=== PATIENT | female | born 1940 | race Caucasian/White ===

== ENCOUNTER 2016-10-20 13:29 | Inpatient (IN) | payer OTHER, MEDICARE ==
[~2016-10-20] VITALS: Ht 160 cm; Wt 103.0 kg
[~2016-10-20 13:29] MED LIST: ADVAIR DISKUS1 UNIT INH; AMBIEN 10MG10 MG PO; AMOXICILLIN500 MG PO; ASPIRIN EC81 M1 PO; AUGMENTIN 875-1 EACH PO; AUGMENTIN 875875 MG PO; COUMADIN 7.5 M7.5 MG PO; COUMADIN5 M2 PO; DILTIAZEM 24HR300 M1 PO; DILTIAZEM240 M1 PO; LASIX20 MG PO; LEVOTHYROXINE88 MCG PO; LIPITOR10 MG PO; METFORMIN HCL500 M3 PO; MONTELUKAST SOD10 MG; PREDNISONE 20MG20 MG PO; ZYRTEC ALLERGY10 MG PO
--- NOTE | 2016-10-20 13:47 | NUR ---
C/O NUMBNESS TO LEFT HAND (FINGERS) SINCE THIS AM (0600). DENIES CHEST PAIN, DIZZINESS, HEADACHE. SENT BY DR. ALVAREZ FOR EVALUATION. EKG DONE ON ARRIVAL.
--- NOTE | 2016-10-20 15:33 | NUR ---
PT AMB TO ROOM 4, CHANGED INTO GOWN. AWAITING EVAL. Informed waiting has been performed.
--- NOTE | 2016-10-20 15:35 | NUR ---
PANCHO BLACKMAN IN FOR EVAL
--- NOTE | 2016-10-20 15:49 | ED CARDIAC/CP/PALPITATIONS ---
History of Present Illness General Chief Complaint: Chest Pain Stated Complaint: SIB DR ALVAREZ FOR POSSIBLE STROKE Source: patient Exam Limitations: no limitations Vital Signs & Intake/Output Vital Signs & Intake/Output Vital Signs Date Time Temp Pulse Resp B/P Pulse O2 O2 Flow FiO2 Ox Delivery Rate 10/20 1803 98.7 90 20 150/100 98 Room Air 10/20 1615 103 140/70 10/20 1601 98.5 85 18 158/116 97 Room Air 10/20 1600 98 Room Air 10/20 1344 96.8 98 20 136/70 98 Room Air Allergies Uncoded Allergies: ENVIRONMENTAL ALLERGIES (Severe, PT. IS UNSURE ?SOB 10/15/12) Reconcile Medications Aspirin (Ecotrin) 81 MG TABLET.DR 81 MG PO EOD MECHANICAL VALVE (Reported) Atorvastatin Calcium (Lipitor) 10 MG TAB 10 MG PO DAILY HLD (Reported) DILTIAZEM HCL (Diltiazem 24HR Cd) 300 MG CAP.ER.24H 1 TAB PO DAILY HEART HEALTH (Reported) Furosemide (Lasix) 20 MG TABLET 1 TAB PO DAILY PULMONARY EDEMA Levothyroxine Sodium (Levothyroxine) 0.088 MG TAB 88 MG PO DAILY THYROID ( Reported) Metformin Hydrochloride (Metformin ER) [address] 500 MG PO DAILY SUGAR ( Reported) Warfarin Sodium 5 MG TABLET 5 MG PO DAILY MECHANICAL VALVE (Reported) Sunday Triage Note: C/O NUMBNESS TO LEFT HAND (FINGERS) SINCE THIS AM (0600). DENIES CHEST PAIN, DIZZINESS, HEADACHE. SENT BY DR. ALVAREZ FOR EVALUATION. Triage Nurses Notes Reviewed? yes HPI: Patient is a 76-year-old female presents for evaluation of left hand numbness and weakness. Symptoms onset at 6 AM this morning. Patient reports that she dropped two bananas this morning from her left hand. Patient saw her primary care provider presents the emergency department for evaluation to rule out stroke. Patient reports numbness is moderate and localized to her left fingers. Patient takes Coumadin daily for atrial fibrillation and a mechanical heart valve. Patient took 81 mg of aspirin this morning, does not take aspirin daily. Mild pain around patient's left eyebrow which she attributes to allergies, reports she has had this pain previously. Patient denies blurred vision, change in speech, recent trauma. (YEHUDA DELEON,MELI) Past History Travel History Traveled to [place] past 21 day No Medical History Any Pertinent Medical History? see below for history Neurological: NONE EENT: NONE Cardiovascular: AFIB Respiratory: asthma Gastrointestinal: NONE Hepatic: NONE Renal: NONE Musculoskeletal: NONE Psychiatric: NONE Endocrine: diabetes, hypothyroidism Blood Disorders: NONE Cancer(s): NONE PC ANALYST/Reproductive: NONE Surgical History Surgical History: non-contributory Psychosocial History What is your primary language Luxembourgish Tobacco Use: Never used ETOH Use: denies use Family History Hx Contributory? No (MELI WILSON) Review of Systems Review of Systems Constitutional: Denies: chills, fever. EENTM: Denies: blurred vision. Respiratory: Denies: cough, short of breath. Cardiovascular: Denies: chest pain, peripheral edema, syncope. GI: Denies: abdominal pain, nausea, vomiting. Musculoskeletal: Denies: back pain, neck pain. Skin: Denies: rash. Neurological/Psychological: Denies: headache, numbness. Hematologic/Endocrine: Denies: bruising, bleeding. Immunologic/Allergic: Denies: splenectomy. (MELI WILSON) Physical Exam Physical Exam General Appearance: well developed/nourished, alert, awake Head: atraumatic, normal appearance Eyes: Bilateral: normal appearance, PERRL, EOMI. 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 Sensation grossly normal to the remaining bilateral upper and lower extremities. Strength 5 out of 5 in all 4 extremities. Normal heeoj-se-xhusy movements Skin: intact, normal color, warm/dry Lymphatic: no anterior cervical shanell Core Measures ACS in differential dx? No Severe Sepsis Present: No Septic Shock Present: No (MELI WILSON) Progress Differential Diagnosis: CVA, TIA, arrhythmia, aortic dissection, carotid dissection Diagnostic Imaging: Viewed by Me: CT Scan. Discussed w/RAD: CT Scan. Radiology Impression: PATIENT: CHELSEY SALINAS PRESENT AGE: 76 PATIENT ACCOUNT NO: [id number] : 41 LOCATION: [facility] ORDERING PHYSICIAN: MELI DELEON SERVICE DATE: 10/20/16 EXAM TYPE: CAT - CT HEAD WO IV CONTRAST EXAMINATION: CT HEAD WITHOUT CONTRAST CLINICAL INFORMATION: Stroke, left-sided weakness. COMPARISON: None. TECHNIQUE: Contiguous axial imaging was performed from the skull base to vertex without intravenous administration of contrast. DLP: 529 mGy-cm. FINDINGS: There is subtle small focus of decreased attenuation involving the valente-white matter junction right frontal lobe precentral gyrus. No hemorrhage. Mild white matter symmetrical decreased attenuation within the periventricular location most consistent chronic small vessel ischemic changes. There is incidental coarse calcific lesion within the right sylvian cistern likely dystrophic. Relatively pronounced atherosclerosis within the vessels at the base the brain. The ventricles are normal in size. Likely streak artifact accounting for a focus of high density right posterior parietal lobe. The osseous structures and soft tissues are normal. The mastoid air cells and visualized portions of the paranasal sinuses are well aerated. IMPRESSION: Small focus of abnormality right frontal lobe. The appearance is consistent with an ischemic insult. Appearance favors nonacute duration more likely subacute. Correlate with clinical findings and time course. Consider MRI as symptoms warrant for more detailed dating and assessment. DICTATED BY: PATRICIA QUINTANILLA MD DATE/TIME DICTATED:10/20/161616 MANAGER BUSINESS BANKING:KATHLEEN DATE/TIME TRANSCRIBED:10/20/161616 CONFIDENTIAL, DO NOT COPY WITHOUT APPROPRIATE AUTHORIZATION. <Electronically signed in Other Vendor System> SIGNED BY: PATRICIA QUINTANILLA MD 10/20/16 1625 Initial ED EKG: AFIB (rate controlled) Rhythm Strip: atrial fibrillation (YEHUDA DELEON,MELI) Plan of Care: Orders Procedure Date/time Status Heart Healthy Diet 10/21 B Active Patient Data 10/20 1928 Active Vital Signs 10/20 1928 Active Code Status 10/[address] in observation 10/20 191 Active Add-on Test (ER Only) 10/20 1557 Active TROPONIN LEVEL 10/20 1552 Complete Telemetry/Client Support Manager 10/20 1545 Active PROTHROMBIN TIME 10/20 1545 Complete COMPREHENSIVE METABOLIC PANEL 10/20 1545 Complete CBC WITHOUT DIFFERENTIAL 10/20 1545 Complete EKG 10/20 1330 Active Laboratory Tests 10/20/16 1552: Anion Gap 13, Estimated GFR > 60, BUN/Creatinine Ratio 21.3, Glucose 133 H, Calcium 9.9, Total Bilirubin 0.6, AST 17, ALT 31, Alkaline Phosphatase 109, Troponin I < 0.01, Total Protein 7.7, Albumin 4.5, Globulin 3.2, Albumin/ Globulin Ratio 1.4, PT 42.7 *H, INR 4.12 *H, CBC w Diff NO MAN DIFF REQ, RBC 4.69, MCV 90.2, MCH 29.9, RDW 14.8 H, MPV 8.9, Gran % 74.3, Lymphocytes % 17.0 L, Monocytes % 7.3, Eosinophils % 1.1, Basophils % 0.3, Absolute Granulocytes 9.7 H, Absolute Lymphocytes 2.2, Absolute Monocytes 1.0 H, Absolute Eosinophils 0.1, Absolute Basophils 0, PUBS MCHC 33.2 Patient unable to undergo MRI due to mechanical heart valve 1640: Results discussed with patient. No acute changes in neuro exam. Patient not a candidate for TPA Discussed with and seen by Dr. Baldwin. Patient took 81 mg of Aspirin at home today. Further antiplatelet therapy deferred. Bedside swallow evaluation normal. NIH score of 1 on initial exam. 1700: Neurology paged to discuss patient. 1750: Discussed with Dr. Hayes: carotid dopplers, echo. If carotids are obstructed on the right side then would need intervention, otherwise, low dose aspirin, increase dose of statin. With patient's mechanical heart valve, cannot obtain MRI so cannot completely characterize CVA. 1850: Dr. Baldwin discussed with Dr. Pearce for patient to be placed in telemetry observation for CVA (MELI WILSON) Comments: 10/20/2016 6:57:47 PM patient evaluated by me personally. I have discussed her case with Dr. Watson and the hospitalist. (SARABJIT MAIER,LESVIA Magallanes) Departure Departure Time of Disposition: 1645 Disposition: STILL A PATIENT Condition: Stable Clinical Impression Primary Impression: CVA (cerebral vascular accident) Qualifiers: CVA mechanism: unspecified Qualified Code: I63.9 - Cerebral infarction, unspecified Referrals: ANTONIO MAIER,JEAN MARIE E. (PCP/Family) Departure Forms: Customer Survey General Discharge Information Observation Note Spoke With: DELMY PEARCE MD Physician Advisor Notified: KERI MAIER,JEAN MARIE Maxwell Place Patient In: Non-ED OBS Care Area Rationale for Observation: My rational for observation is as follows: Serum neurologic exams, neurology consultation, chronic Dopplers, echocardiogram, medication adjustment (MELI WILSON) Critical Care Note Critical Care Note Critical Care Time: non-applicable (MELI WILSON)
--- NOTE | 2016-10-20 15:59 | NUR ---
PT TO CAT SCAN.
[2016-10-20 16:00] LABS: ABSOLUTE BASOPHIL COUNT 0 /CUMM (0.0-0.2); ABSOLUTE EOSINOPHIL COUNT 0.1 /CUMM (0.0-0.7); ABSOLUTE GRANULOCYTE CT 9.7 /CUMM (1.4-6.5); ABSOLUTE LYMPH COUNT 2.2 /CUMM (1.2-3.4); BASOPHIL % 0.3 % (0.0-2.0); EOSINOPHIL % 1.1 % (0-5); GRANULOCYTE % 74.3 % (42.2-75.2); HEMATOCRIT 42.3 % (37-47); MEAN CORPUSCULAR HGB 29.9 PG (27.0-31.0); MEAN CORPUSCULAR HGB CONC 33.2 G/DL (33.0-37.0); MEAN CORPUSCULAR VOLUME 90.2 FL (81.0-99.0); MEAN PLATELET VOLUME 8.9 FL (7.4-10.4); PLATELET COUNT 258 /CUMM (130-400); RBC DISTRIBUTION WIDTH 14.8 % (11.5-14.5); RED BLOOD CELL CT 4.69 /CUMM (4.20-5.40)
--- NOTE | 2016-10-20 16:15 | NUR ---
BACK FROM CAT SCAN
--- NOTE | 2016-10-20 16:25 | CT SCAN REPORT ---
EXAMINATION: CT HEAD WITHOUT CONTRAST CLINICAL INFORMATION: Stroke, left-sided weakness. COMPARISON: None. TECHNIQUE: Contiguous axial imaging was performed from the skull base to vertex without intravenous administration of contrast. DLP: 529 mGy-cm. FINDINGS: There is subtle small focus of decreased attenuation involving the valente-white matter junction right frontal lobe precentral gyrus. No hemorrhage. Mild white matter symmetrical decreased attenuation within the periventricular location most consistent chronic small vessel ischemic changes. There is incidental coarse calcific lesion within the right sylvian cistern likely dystrophic. Relatively pronounced atherosclerosis within the vessels at the base the brain. The ventricles are normal in size. Likely streak artifact accounting for a focus of high density right posterior parietal lobe. The osseous structures and soft tissues are normal. The mastoid air cells and visualized portions of the paranasal sinuses are well aerated. IMPRESSION: Small focus of abnormality right frontal lobe. The appearance is consistent with an ischemic insult. Appearance favors nonacute duration more likely subacute. Correlate with clinical findings and time course. Consider MRI as symptoms warrant for more detailed dating and assessment.
[2016-10-20 16:59] LABS: PT 42.7 SEC (9.4-12.5)
--- NOTE | 2016-10-20 17:01 | NUR ---
CRITICAL TEST RESULTS [id number] CHELSEY SALINAS 76 F TESTS AND RESULTS: INR 4.12 Results received and read back by: SOLANGE SHEPHERD Results received date and time: 10/20/16 1701 The following provider was notified of the results, and read the results back: CHANTEL BLACKMAN Notified date and time: 10/20/16 at 1701
--- NOTE | 2016-10-20 17:38 | NUR ---
ORDERED PT DINNER.
--- NOTE | 2016-10-20 18:53 | NUR ---
case management at bedside.
--- NOTE | 2016-10-20 20:05 | NUR ---
PT BED ASSIGNMENT [phone]
--- NOTE | 2016-10-20 20:23 | NUR ---
US AND HOUSE STAFF AT BEDSIDE
--- NOTE | 2016-10-20 20:44 | History & Physical ---
[place] [place] General Information and HPI MD Statement: I have seen and personally examined CHELSEY SALINAS and documented this H&P. The patient is a 76 year old F who presented with a patient stated chief complaint of left hand numbness. Source of Information: patient, old records Exam Limitations: no limitations History of Present Illness: 76 y/o F with PMHx of rheumatic fever c/b mitral valve disease s/p mechanical valve replacement, atrial fibrillation on warfarin, frequent nose bleeds s/p nasal cautery, HTN, HLD, T2DM and hypothyroidism who presents with numbness involving the fingertips of her left hand which started the morning of current presentation. When patient woke up this morning at 6 AM, she noticed that the tip of her pinky was numb. The numbness spread to her other fingers during the day, but is only limited to the fingertips. Her fingers also felt weak, she dropped the banana twice while trying to peel it. She denies arm or leg weakness. She went to see her PCP around noon who sent her to the ED due to concern for CVA/TIA. Upon arrival to the ED, her symptoms had completely resolved. She denies chest pain, lightheadedness or dizziness. She has shortness of breath and palpitations at baseline which is unchanged. She complained of a mild headache which had recently started per patient and was not there at the time of her left hand numbness. She denies prior history of strokes. Allergies/Medications Allergies: Uncoded Allergies: ENVIRONMENTAL ALLERGIES (Severe, PT. IS UNSURE ?SOB 10/15/12) Home Med list Aspirin (Ecotrin) 81 MG TABLET. 81 MG PO EOD MECHANICAL VALVE (Reported) Atorvastatin Calcium (Lipitor) 10 MG TAB 10 MG PO DAILY HLD (Reported) DILTIAZEM HCL (Diltiazem 24HR Cd) 300 MG CAP.ER.24H 1 TAB PO DAILY HEART HEALTH (Reported) Furosemide (Lasix) 20 MG TABLET 1 TAB PO DAILY PULMONARY EDEMA Levothyroxine Sodium (Levothyroxine) 0.088 MG TAB 88 MG PO DAILY THYROID ( Reported) Metformin Hydrochloride (Metformin ER) [address] 500 MG PO DAILY SUGAR ( Reported) Warfarin Sodium 5 MG TABLET 5 MG PO DAILY MECHANICAL VALVE (Reported) Sunday Compliance With Home Meds: GOOD Past History Travel History Traveled to [place] past 21 day No Medical History Neurological: NONE EENT: cataracts, epistaxis Cardiovascular: AFIB, hypertension, hyperlipidemia, mitral valve disease Respiratory: asthma Gastrointestinal: NONE Hepatic: NONE Renal: NONE Musculoskeletal: NONE Psychiatric: NONE Endocrine: diabetes, hypothyroidism Cancer(s): NONE 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 Home Who Do You Live With? self Primary Language: Sami Smoking Status: Former Smoker (Quit 25 Yrs Ago) ETOH Use: denies use Functional Ability ADLs Independent: dressing, eating, toileting, bathing. Ambulation: independent IADLs Independent: shopping, housework, finances, food prep, telephone, transportation , medication admin. Employment History Employment Retired Review of Systems Review of Systems Constitutional: Denies: chills, fever. EENTM: Reports: no symptoms. Cardiovascular: Denies: chest pain, palpitations. Respiratory: Reports: short of breath (chronic). GI: Reports: no symptoms. Genitourinary: Reports: no symptoms. Musculoskeletal: Reports: no symptoms. Skin: Reports: no symptoms. Neurological/Psychological: Reports: numbness, weakness. Hematologic/Endocrine: Reports: bleeding (frequent nose bleeds). Immunologic/Allergic: Reports: no symptoms. All Other Systems: Reviewed and Negative Exam & Diagnostic Data Last 24 Hrs of Vital Signs/I&O Vital Signs Date Time Temp Pulse Resp B/P Pulse O2 O2 Flow FiO2 Ox Delivery Rate 10/20 2154 97.8 88 18 124/88 98 Room Air 10/20 1803 98.7 90 20 150/100 98 Room Air 10/20 1615 103 140/70 10/20 1601 98.5 85 18 158/116 97 Room Air 10/20 1600 98 Room Air 10/20 1344 96.8 98 20 136/70 98 Room Air Intake & Output 10/21 0800 10/21 0000 10/20 1600 Intake Total 100 Output Total Balance 100 Intake, Oral 100 Patient 102.965 kg 102.965 kg Weight Physical Exam General Appearance Alert, Oriented X3, No Acute Distress Skin No Rashes, Warm, Dry and Well-Perfused HEENT PERRLA, EOMI, Mucous Membr. moist/pink Neck Supple, No JVD Cardiovascular Irregular Rate and Rhythm, Grade 3/6 Systolic Murmur Lungs Clear to Auscultation Abdomen Soft, No Tenderness, Positive Bowel Sounds Neurological Normal Speech, Strength at 5/5 X4 Ext, Sensation Intact, Cranial Nerves 3-12 NL, No Pronator Drift, Babinski Negative Bilaterally, No Dysmetria on [id number] Testing, No Focal Deficits Noted Extremities No Clubbing, No Cyanosis, Trace Pitting Edema on Bilateral Lower Extremities Last 24 Hrs of Labs/Robin: Laboratory Tests 10/20/16 1552: Anion Gap 13, Estimated GFR > 60, BUN/Creatinine Ratio 21.3, Glucose 133 H, Calcium 9.9, Total Bilirubin 0.6, AST 17, ALT 31, Alkaline Phosphatase 109, Troponin I < 0.01, Total Protein 7.7, Albumin 4.5, Globulin 3.2, Albumin/ Globulin Ratio 1.4, Vitamin B12 624, PT 42.7 *H, INR 4.12 *H, CBC w Diff NO MAN DIFF REQ, RBC 4.69, MCV 90.2, MCH 29.9, RDW 14.8 H, MPV 8.9, Gran % 74.3, Lymphocytes % 17.0 L, Monocytes % 7.3, Eosinophils % 1.1, Basophils % 0.3, Absolute Granulocytes 9.7 H, Absolute Lymphocytes 2.2, Absolute Monocytes 1.0 H, Absolute Eosinophils 0.1, Absolute Basophils 0, PUBS MCHC 33.2 Diagnostic Data EKG Results Atrial fibrillation HR 79-119 RBBB, LPFB QTc [address] HEAD: Small focus of abnormality right frontal lobe. The appearance is consistent with an ischemic insult. Appearance favors nonacute duration more likely subacute. Correlate with clinical findings and time course. Consider MRI as symptoms warrant for more detailed dating and assessment. Assessment/Plan Assessment: 76 y/o F with PMHx of rheumatic fever c/b mitral valve disease s/p mechanical valve replacement, atrial fibrillation on warfarin and T2DM who presents after a transient episode of numbness involving the fingertips of her left hand. #Left hand numbness: Most likely TIA given transient nature of symptoms and patient's history of atrial fibrillation, although she was on warfarin with therapeutic INR. Differential includes CVA, peripheral neuropathy given history of T2DM and nerve compression. NIH stroke scale score of (+1 for partial sensory loss) on initial presentation. CT Head with a suspected right frontal lesion, consistent with subacute infarct. * Admit to telemetry floor for continuous cardiac monitoring. * Neurology consulted. Appreciate their recs. * Neuro checks Q6H. * Continue home daily low dose aspirin. * Start high dose statin, atorvastatin 40 mg PO QD, given suspected TIA. Patient takes low-dose statin, atorvastatin 10 mg PO QD at home. * ECHO ordered to evaluate for embolic source. * PT/OT eval. * Carotid doppler US ordered to assess for carotid artery stenosis. * Check lipid panel. * MRI Brain cannot be performed as patient has mechanical valve. #Atrial fibrillation: INR 4.12 on admission. Goal INR is 2.5-3.5 as patient has a mechanical mitral valve. * Continue prior to admission diltiazem CD for rate control. * Monitor INR and dose warfarin to keep INR 2-3. #T2DM: * Continue prior to admission metformin per patient request as she refuses insulin. #Hypothyroidism: * Continue prior to admission levothyroxine 88 mcg PO QD. Diet: Heart Healthy DVT PPx: Warfarin and ALPs Pain: Tylenol 650 mg PO Q6H PRN for mild pain (scale 1-3) CODE: FULL As Ranked By This Provider Problem List: 1. Atrial fibrillation 2. T2DM (type 2 diabetes mellitus) 3. Hypothyroidism 4. Numbness of left hand Core Measures/Miscellaneous Acute Coronary Syndrome ACS Diagnosis: No Cerebrovascular Accident CVA/TIA Diagnosis: Yes NIH Stroke Scale: Total 1 Date Last Known Well: 10/19/16 Time Last Known Well: 0000 (At bedtime) Neurological S/S of CVA: Weakness of Limb Symptom Start Date: 10/20/16 Symptom Start Time: 0600 Reason tPA not ordered Medical Contraindication (Asymptomatic on Presentation) Bedside Swallow Eval Done: Yes Result of Evaluation: Pass Antithrombotic: Yes AFIB: Atrial Fibrillation Aflutter: No Anticoagulant: Yes Evidence of Atherosclerosis: Yes (chronic ischemia on CT head) LDL Assessed Within 24 Hours: Yes Currently on Statin: Yes Rehab Needs Assessed: Medical Eval for Rehab (PT/OT consult placed) PT Consult Ordered: Yes Congestive Heart Failure CHF Diagnosis: No Venous Thromboembolism VTE Risk Factors: Acute medical illness, Age > 40 VTE Prophylaxis Ordered Inpt: Mech & Pharm No Mech VTE prophylaxis d/t: No contraindications No VTE Pharm Prophylaxis d/t: No contraindications VTE Diagnosis: No VTE Type: NONE VTE Confirmed by (Test): NONE Severe Sepsis Severe Sepsis Present: No Septic Shock Septic Shock Present: No Miscellaneous Documentation Attending Case Discussed With: DELMY JI MD Primary Care Physician: JEAN MARIE ALVAREZ MD Patient sees these Specialists Market Research Lead in [place] Level of Patient Care: Telemetry CHEVY JOHNSTON 10/20/162058: Resident Review Statement Resident Statement: examined this patient, discussed with internal communications writer, agreed with internal communications writer Other Findings: Patient is a 76-year-old woman with a past medical history significant for rheumatic fever complicated with mitral valve disease, had a mitral mechanical valve replacement in 2002, on Coumadin, history of atrial fibrillation, hypertension, hyperlipidemia ,hypothyroidism, and history of frequent nosebleeds status post cauterization presented to the ED with a chief complaint of numbness in the tips of of the fingers of the left hand started this morning. Patient noticed numbness in the left pinky finger at around 6 AM this morning, that progressively involved tips of all the fingers associated with weakness. She noticed the weakness when she tried to grab banana twice, and dropped.She was seen at her primary care physician at around 12 PM this afternoon and from there she was sent to the ER for possible evaluation of stroke versus TIA. After coming to the ER her symptoms completely resolved. Denies any chest discomfort. Has baseline exertional shortness of breath with palpitations. Denied any lightheadedness or dizziness headaches or visual disturbances. Denies any recent infections or fevers. No nausea vomiting or abdominal discomfort. Denies any diarrhea , she is usually constipated due to her low thyroid Levels. Vitals on admission temperature 96.8, pulse 98, respiratory rate 20, blood pressure 136/70 on room air. On examination General Appearance: Alert, No Acute Distress Skin: Grossly normal HEENT: PEERLA Neck: Supple, No JVD Cardiovascular: loud pansystolic murmur in the mitral region. Lungs: bilateral basal crackles Abdomen: Normal Bowel Sounds, Soft, No Tenderness Neurological: Normal Speech, Strength at 5/5 X4 Ext, Cranial Nerves 3-12 NL, Reflexes 2+. Passed bedside swallow evaluation Extremities: bilateral trace pitting edema in the lower extremities. Pertinent labs on admission: Leukocytosis 13.0 without any bandemia, BeP normal. First troponin negative, super therapeutic INR 4.1 EKG done in the ED showed atrial fibrillation with right bundle branch block QTC of 501 CT head:Small focus of abnormality right frontal lobe. The appearance is consistent with an ischemic insult. Appearance favors nonacute duration more likely subacute. Correlate with clinical findings and time course. Assessment and plan 1. Acute numbness involving tips of left hand fingers with weakness: Resolved completely now possible TIA/CVA/nerve compression. * We'll admit the patient to telemetry floor. * Will obtain Doppler carotid ultrasound and echocardiogram * Neurology consult has been obtained. * Continue with baby aspirin Will increase the dose of atorvastatin 40 mg daily. * Patient passed bedside swallow evaluation will obtain formal swallow evaluation in the morning. * MRI of that cannot be obtained because of mechanical mitral valve * PT/OT consult in the morning. * Check vitamin B12 levels * Watch for any hemodynamic stability. 2. Leukocytosis without any clear evidence of infection * If needed will do chest x-ray and cultures * Monitor vitals every 4 hours. 3. History of mechanical valve replacement and atrial fibrillation * Goal INR to be between 2.5 and 3.5 * His INR today is 4.12 Will hold Coumadin today and check INR tomorrow and dose Coumadin accordingly. * Continue Cardizem. 4. History of type 2 diabetes mellitus * Patient is currently not willing to take insulin in the hospital * And continue home dose of metformin 2000 mg extended release at bedtime * Continue finger sugar sticks. 5 History of bilateral lower extremity edema * Continue home dose of Lasix. 6. History of hypothyroidism * Continue home dose of Synthroid. 7. Mild to moderate pain controlled with Tylenol 8. DVT prophylaxis supratherapeutic INR 9. Patient is full GARRISON,AARTETony 10/21/16 0514: Attending MD Review Statement Attending Statement Attending MD Statement: examined this patient, discuss w/resident/PA/SPECIAL SERVICES DIRECTOR, agreed w/resident/PA/SPECIAL SERVICES DIRECTOR, reviewed EMR data (avail), reviewed images, amended to note Attending Assessment/Plan: Cc: left hand weakness and numbness on the tip of the fingers PMH: DM, mitral valve replacement 2002, mechanical valve, currently on warfarin, paroxysmal A. fib, hypothyroidism, recurrent nosebleeds S/P embolization. Patient woke up this morning and noticed weakness in her hand she dropped banana from her hand couple of times. It was followed by numbness sensations in her fingertips started from fifth digit then she had numbness and all fingertips. She went to see PCP who suggested her to go to ER for further evaluation. Sometime in the ER numbness and weakness resolved. She is compliant with her warfarin and her INR is always in range of 2.5-3.5, but she was not taking her aspirin as she was worried about bleeding with warfarin, and multiple medications. Did not have any similar complaints or strokes in the past. Vitals: Afebrile, HR, RR, BP, O2 saturation in acceptable range. On exam: A O 3 , no acute distress, neck supple, no lymphadenopathy, no JVD, mucosa moist, complete neurological examination done no obvious deficit in strength or sensations. CVS: S1-S2, regular. RS: Clear to auscultate bilaterally. Abdomen: Soft, NT, ND, bowel sounds present. No dependent edema. Labs: WBC 13.0, INR 4.12 otherwise CBC, BMP, LFT, troponin unremarkable. CT head:Small focus of abnormality right frontal lobe. The appearance is consistent with an ischemic insult. Appearance favors nonacute duration more likely subacute. Correlate with clinical findings and time course. Consider MRI as symptoms warrant for more detailed dating and assessment. A and P #1 TIA versus stroke: Weakness and numbness resolved, most likely TIA, CT head suggestive of subacute ischemia, MRI cannot be obtained secondary to her mechanical mitral valve. Continue aspirin, increased dose of atorvastatin to 40 mg by mouth daily, neurochecks every 6 hour, neurology consult, follow-up carotid Doppler results, swallow evaluation done in ER patient passed. Check lipid profile, OT PT evaluation. Check B12 levels #2 chronic stable conditions mitral valve replacement, A. fib, hypothyroidism continue her home doses of diltiazem, Lasix, levothyroxine. Continue her home regimen of warfarin. INR should be between 2.5 to 3.5 #3 DM: Patient refuses sliding scale insulin in hospital, continue her by mouth metformin. #4 DVT prophylaxis currently on warfarin therapeutic, adequate pain control
--- NOTE | 2016-10-20 20:55 | NUR ---
REPORT GIVEN TO ART GUZMÁN
--- NOTE | 2016-10-20 21:22 | ULTRASOUND REPORT ---
EXAMINATION: US DUPLEX CAROTID AND VERTEBRAL CLINICAL INFORMATION: Left arm and left hand numbness. COMPARISON: None. TECHNIQUE: Real-time ultrasound and Doppler techniques (integrating B-mode 2D vascular images, Doppler spectral analysis and color flow Doppler imaging) were utilized to interrogate the extracranial carotid and vertebral arteries bilaterally. The degree of stenosis determined by criteria similar to NASCET. FINDINGS: RIGHT CAROTID SYSTEM: There is no significant plaque within the right carotid system. Peak systolic velocities and end diastolic velocities of the right vessels are as follows: Distal CCA: PSV 66 cm/s, EDV 16 cm/s Proximal ICA: PSV 66 cm/s, EDV 14 cm/s Mid ICA: 62 cm/s, EDV 15 cm/s Distal ICA: 63 cm/s, EDV 15 cm/s ECA: PSV 73 cm/s, EDV 9 cm/s Right vertebral artery: Antegrade flow is identified within the right vertebral artery. LEFT CAROTID SYSTEM: There is no significant plaque within the left carotid system. Peak systolic velocities and end diastolic velocities of the left vessels are as follows: Distal CCA: PSV 85 cm/s, EDV 23 cm/s Proximal ICA: PSV 61 cm/s, EDV 17 cm/s Mid ICA: 67 cm/s, EDV 19 cm/s Distal ICA: 83 cm/s, EDV 30 cm/s ECA: PSV 115 cm/s, EDV 18 cm/s Left vertebral artery: Antegrade flow within the left vertebral artery. IMPRESSION: No hemodynamically significant stenosis of the bilateral internal carotid arteries. Any stenosis is less than 50%.
[2016-10-20 21:54] VITALS: BP 124/88
[2016-10-21 07:48] LABS: ABSOLUTE BASOPHIL COUNT 0 /CUMM (0.0-0.2); ABSOLUTE EOSINOPHIL COUNT 0.2 /CUMM (0.0-0.7); ABSOLUTE GRANULOCYTE CT 8.2 /CUMM (1.4-6.5); ABSOLUTE LYMPH COUNT 2.3 /CUMM (1.2-3.4); ABSOLUTE MONOCYTE COUNT 0.9 /CUMM (0.10-0.60); BASOPHIL % 0.4 % (0.0-2.0); EOSINOPHIL % 1.8 % (0-5); GRANULOCYTE % 70.6 % (42.2-75.2); HEMATOCRIT 38.5 % (37-47); MEAN CORPUSCULAR HGB 30.4 PG (27.0-31.0); MEAN CORPUSCULAR HGB CONC 33.6 G/DL (33.0-37.0); MEAN CORPUSCULAR VOLUME 90.3 FL (81.0-99.0); MEAN PLATELET VOLUME 9.8 FL (7.4-10.4); PLATELET COUNT 218 /CUMM (130-400); RBC DISTRIBUTION WIDTH 14.5 % (11.5-14.5); RED BLOOD CELL CT 4.27 /CUMM (4.20-5.40); WHITE BLOOD CELL COUNT 11.6 /CUMM (4.8-10.8)
[2016-10-21 08:22] LABS: PT 32.3 SEC (9.4-12.5)
--- NOTE | 2016-10-21 08:23 | PN- Housestaff ---
CHANTEL RUSH 10/21/16 0823: Subjective Follow-up For: Left upper extremity numbness Supratherapeutic INR Complaints: no complaints Tele-Events Since Last Visit: A. fib/flutter: HR 85-95bpm, bundle branch block Subjective: Interval history: This morning the patient states that symptoms appear to have resolved with only mild tingling/numbness left fingers. She denies any headaches, blurred vision, sinus, slurred speech, choking on swallowing, chest pain, palpitations, shortness of breath. Review of Systems Constitutional: Reports: see HPI. EENTM: Reports: no symptoms. Cardiovascular: Reports: no symptoms. Respiratory: Reports: no symptoms. Gastrointestinal: Reports: no symptoms. Genitourinary: Reports: no symptoms. Musculoskeletal: Reports: see HPI. Objective Last 24 Hrs of Vital Signs/I&O Vital Signs Date Time Temp Pulse Resp B/P Pulse O2 O2 Flow FiO2 Ox Delivery Rate 10/21 1530 98.0 81 20 114/78 96 Room Air 10/21 0902 97.5 84 20 114/78 95 Room Air Intake & Output 10/21 1600 10/21 0800 10/21 0000 Intake Total 960 100 100 Output Total Balance 960 100 100 Intake, Oral 960 100 100 Patient 227 lb Weight Physical Exam General Appearance: Alert, Cooperative, No Acute Distress Skin: No Breakdown, No Significant Lesion HEENT: EOMI, Mucous Membr. moist/pink Neck: Supple Cardiovascular: Normal S1, Normal S2, irregularly irregular rhythm Lungs: Normal Air Movement, diminished breath sounds in the basilar region Abdomen: Normal Bowel Sounds, Soft, No Tenderness Neurological: Normal Speech, Strength at 5/5 X4 Ext, Normal Tone, Sensation Intact, Cranial Nerves 3-12 NL Extremities: Normal Pulses, 1+ pitting edema bilateral lower extremities Vascular: Pulses Symmetrical Current Medications: Current Medications Sig/Nigel Start time Last Medication Dose Route Stop Time Status Admin Acetaminophen 650 MG Q6P PRN 10/20 1945 AC 10/21 PO 2216 Aspirin Buffered 81 MG Q48 10/21 1000 AC 10/21 PO 0900 Atorvastatin Calcium 40 MG 1700 10/20 2130 AC 10/21 PO 1755 Benzonatate 100 MG TID 10/21 1020 AC 10/21 PO 2155 Diltiazem HCl 240 MG DAILY 10/21 1000 CAN PO Diltiazem HCl 300 MG DAILY 10/21 1000 AC 10/21 PO 0859 Enoxaparin Sodium 40 MG DAILY 10/21 1000 CAN SC Furosemide 20 MG DAILY 10/21 1000 AC 10/21 PO 0900 Insulin Aspart 0 TIDAC 10/21 0800 AC SC Levothyroxine Sodium 0.088 MG DAILY AC 10/21 0700 AC PO Magnesium Oxide 800 MG ONE ONE 10/21 2215 DC 10/21 PO 10/21 221 2219 Metformin HCl 1,000 MG 0800,1700 10/21 0800 AC 10/21 PO 1755 Nitroglycerin 0.4 MG ONCE ONE 10/21 2214 DC 10/21 SL 10/21 2216 2220 Potassium Chloride 40 MEQ ONCE ONE 10/21 2215 CAN PO 10/21 221 Potassium Chloride 40 MEQ ONCE ONE 10/21 0945 DC 10/21 PO 10/21 0946 1125 Warfarin Sodium 5 MG COUMADIN 1700 ONE 10/21 1700 DC 10/21 PO 10/21 1701 1757 Last 24 Hrs of Lab/Robin Results Last 24 Hrs of Labs/Mics: Laboratory Tests 10/21/162229: Troponin I Pending 10/21/16 0704: Anion Gap 10, Estimated GFR > 60, BUN/Creatinine Ratio 20.0, Phosphorus 3.6, Magnesium 1.5 L, Triglycerides 78, Cholesterol 136, LDL Cholesterol, Calc 71, HDL Cholesterol 50, Cholesterol/HDL Ratio 3, PT 32.3 H, INR 3.11 H, CBC w Diff NO MAN DIFF REQ, RBC 4.27, MCV 90.3, MCH 30.4, RDW 14.5, MPV 9.8, Gran % 70.6, Lymphocytes % 19.6 L, Monocytes % 7.6, Eosinophils % 1.8, Basophils % 0.4, Absolute Granulocytes 8.2 H, Absolute Lymphocytes 2.3, Absolute Monocytes 0.9 H, Absolute Eosinophils 0.2, Absolute Basophils 0, PUBS MCHC 33.6 Assessment/Plan Assessment: 76-year-old lady with a PMH of rheumatic fever, located with mitral valve disease S/P mechanical valve replacement, A. fib, frequent epistaxis S/P cauterization, HTN, HLD, DM and hypothyroidism who presented to [place] ED with complaints of left fingertip numbness. VS on admission: BP 136/70, HR 90, RR 20, SPO2 98% on RA, T 96.8 Pertinent labs: WBC 13.0, H&H 14.0/42.3, BUN/CR 17/0.8 EKG: A. fib, HR 79-119 bpm, RBBB, QTC 501. Head CT: Small focus of abnormality right frontal lobe. The appearance is consistent with an ischemic insult. Appearance favors nonacute duration more likely subacute. Correlate with clinical findings and time course. Consider MRI as symptoms warrant for more detailed dating and assessment. Carotid Doppler: No hemodynamically significant stenosis of the bilateral internal carotid arteries. Any stenosis is less than 50%. Problem list: 1. CVA 2. Atrial fibrillation 3. History of mechanical valve 4. Diabetes Plan: 1. CVA * CT head and carotid Doppler ultrasound findings as indicated above * We'll obtain cardiology consult. Patient may benefit from echocardiogram to assess valve leaflets * We'll continue aspirin 81 mg, atorvastatin 40 mg 2. Atrial fibrillation * INR and admission: 4.12, trended down to 3.11. Unclear if there was any episode of subtherapeutic INR prior to admission * We'll continue to dose Coumadin for INR goal of 2.5 through 3.5 3. History of mechanical valve * Recommendations as above 4. Diabetes * Patient requests to be continued and metformin while inpatient 5. Diet * Heart healthy 6. DVT prophylaxis * Coumadin 7. CODE STATUS * Full code Problem List: 1. CVA (cerebral vascular accident) 2. Atrial fibrillation 3. T2DM (type 2 diabetes mellitus) 4. Mechanical heart valve present Pain Ratin Pain Location: NA Pain Goal: Pain 4 or less Pain Plan: NA Tomorrow's Labs & Rationales: CBC: Trending leukocytosis DVT/Prophylaxis: pharmacological Consulting Request: Consulting Specialty: Cardiology REILLY GARNICA MD 10/21/16 2211: Attending MD Review Statement Attending Statement Attending MD Statement: examined this patient, discuss w/resident/PA/VARNISHER, agreed w/resident/PA/VARNISHER, discussed with family, reviewed EMR data (avail), discussed with nursing, discussed with case mgmt, reviewed images, amended to note Attending Assessment/Plan: The patient was seen and discussed with house staff. CT showing right frontal infarction. Will convert to full admission as this is consistent with acute CVA. Await ECHO.
[2016-10-21 09:02] VITALS: BP 114/78
--- NOTE | 2016-10-21 13:49 | Cons- Neurology ---
General Information and HPI Consulting Request Date of Consult: 10/21/16 Requested By: DELMY JI MD History of Present Illness: 76-year-old female who about an hour after awakening yesterday from sleep noted onset of difficulty with use of the left upper extremity. She was peeling a banana when she dropped it. She picked up a second banana and also dropped at. She then noted that she had difficulty with use of the left upper extremity when she attempted to scratch her left ear. This was then accompanying with a numb- like sense involving the fingers of the left hand. She called her sister on the telephone. There was no dysarthria. The patient looked at her face in the mirror and did not note any facial weakness and there is no history of facial paresthesia. There was no difficulty with walking. The symptoms entirely resolved in a few hours time. There was no head trauma or alteration of consciousness. There was no fall. At present patient has no similar symptoms. Patient has a history of atrial fibrillation and a mechanical heart valve. She has been compliant with warfarin. Allergies/Medications Allergies: Uncoded Allergies: ENVIRONMENTAL ALLERGIES (Severe, PT. IS UNSURE ?SOB 10/15/12) Home Med List: Aspirin (Ecotrin) 81 MG TABLET.DR 81 MG PO EOD MECHANICAL VALVE (Reported) Atorvastatin Calcium (Lipitor) 10 MG TAB 10 MG PO DAILY HLD (Reported) DILTIAZEM HCL (Diltiazem 24HR Cd) 300 MG CAP.ER.24H 1 TAB PO DAILY HEART HEALTH (Reported) Furosemide (Lasix) 20 MG TABLET 1 TAB PO DAILY PULMONARY EDEMA Levothyroxine Sodium (Levothyroxine) 0.088 MG TAB 88 MG PO DAILY THYROID ( Reported) Metformin Hydrochloride (Metformin ER) [address] 500 MG PO DAILY SUGAR ( Reported) Warfarin Sodium 5 MG TABLET 5 MG PO DAILY MECHANICAL VALVE (Reported) Sunday Review of Systems Review of Systems: Denies headache, diplopia, vertigo, dysphagia, chest pain, breathing difficulty, abdominal pain, incontinence, fever, focal weakness, falls. 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 Home Who Do You Live With? self Primary Language: Welsh Smoking Status: Former Smoker (Quit 25 Yrs Ago) ETOH Use: denies use Functional Ability ADLs Independent: dressing, eating, toileting, bathing. Ambulation: independent IADLs Independent: shopping, housework, finances, food prep, telephone, transportation , medication admin. Employment History Employment: Retired Exam & Diagnostic Data Vital Signs and I&O Vital Signs Date Time Temp Pulse Resp B/P Pulse O2 O2 Flow FiO2 Ox Delivery Rate 10/21 0902 97.5 84 20 114/78 95 Room Air 10/20 2154 97.8 88 18 124/88 98 Room Air 10/20 1803 98.7 90 20 150/100 98 Room Air 10/20 1615 103 140/70 10/20 1601 98.5 85 18 158/116 97 Room Air 10/20 1600 98 Room Air Intake & Output 10/21 1600 10/21 0800 10/21 0000 Intake Total 100 100 Output Total Balance 100 100 Intake, Oral 100 100 Patient 227 lb Weight Alert and oriented, language functions fund of knowledge attention span concentration intact, he is in no acute distress Heart sounds normal, no carotid bruits, distal pulses intact Extraocular movements full, pupils equal and reactive, fundi benign, visual bingham intact, no facial weakness, no facial sensory loss, palate tongue and shoulders intact, hearing grossly intact Normal tone and strength upper and lower extremities No sensory deficit to light touch and position According to functions intact Gait normal Deep tendon reflexes 1+ bilateral Last 48 Hours of Lab Results: Laboratory Tests 10/21 10/20 0704 1552 Chemistry Sodium (137 - 145 mmol/L) 141 141 Potassium (3.5 - 5.1 mmol/L) 3.6 3.7 Chloride (98 - 107 mmol/L) 102 99 Carbon Dioxide (22 - 30 mmol/L) 28 29 Anion Gap (5 - 16) 10 13 BUN (7 - 17 mg/dL) 14 17 Creatinine (0.5 - 1.0 mg/dL) 0.7 0.8 Estimated GFR (>60 ml/min) > 60 > 60 BUN/Creatinine Ratio (7 - 25 %) 20.0 21.3 Glucose (65 - 99 mg/dL) 133 H Calcium (8.4 - 10.2 mg/dL) 9.9 Magnesium (1.6 - 2.3 mg/dL) 1.5 L Total Bilirubin (0.2 - 1.3 mg/dL) 0.6 AST (14 - 36 U/L) 17 ALT (9 - 52 U/L) 31 Alkaline Phosphatase (<127 U/L) 109 Troponin I (< 0.11 ng/ml) < 0.01 Total Protein (6.3 - 8.2 g/dL) 7.7 Albumin (3.5 - 5.0 g/dL) 4.5 Globulin (1.9 - 4.2 gm/dL) 3.2 Albumin/Globulin Ratio (1.1 - 2.2 %) 1.4 Triglycerides (<150 mg/dL) 78 Cholesterol (<200 MG/DL) 136 LDL Cholesterol, Calc (65 - 129 mg/dL) 71 HDL Cholesterol (40 - 60 mg/dL) 50 Cholesterol/HDL Ratio (0.00 - 4.23 %) 3 Vitamin B12 (239 - 931 pg/mL) 624 Coagulation PT (9.4 - 12.5 SEC) 32.3 H 42.7 *H INR (0.90 - 1.19) 3.11 H 4.12 *H Hematology CBC w Diff NO MAN DIFF REQ NO MAN DIFF REQ WBC (4.8 - 10.8 /CUMM) 11.6 H 13.0 H RBC (4.20 - 5.40 /CUMM) 4.27 4.69 Hgb (12.0 - 16.0 G/DL) 12.9 14.0 Hct (37 - 47 %) 38.5 42.3 MCV (81.0 - 99.0 FL) 90.3 90.2 MCH (27.0 - 31.0 PG) 30.4 29.9 RDW (11.5 - 14.5 %) 14.5 14.8 H Plt Count (130 - 400 /CUMM) 218 258 MPV (7.4 - 10.4 FL) 9.8 8.9 Gran % (42.2 - 75.2 %) 70.6 74.3 Lymphocytes % (20.5 - 51.1 %) 19.6 L 17.0 L Monocytes % (1.7 - 9.3 %) 7.6 7.3 Eosinophils % (0 - 5 %) 1.8 1.1 Basophils % (0.0 - 2.0 %) 0.4 0.3 Absolute Granulocytes (1.4 - 6.5 /CUMM) 8.2 H 9.7 H Absolute Lymphocytes (1.2 - 3.4 /CUMM) 2.3 2.2 Absolute Monocytes (0.10 - 0.60 /CUMM) 0.9 H 1.0 H Absolute Eosinophils (0.0 - 0.7 /CUMM) 0.2 0.1 Absolute Basophils (0.0 - 0.2 /CUMM) 0 0 PUBS MCHC (33.0 - 37.0 G/DL) 33.6 33.2 Imaging/Other Studies: CT HEAD IMPRESSION: Small focus of abnormality right frontal lobe. The appearance is consistent with an ischemic insult. Appearance favors nonacute duration more likely subacute. Correlate with clinical findings and time course. Consider MRI as symptoms warrant for more detailed dating and assessment. CAROTID U/S: IMPRESSION: No hemodynamically significant stenosis of the bilateral internal carotid arteries. Any stenosis is less than 50%. Assessment/Plan Assessment: TIA versus small cortical infarct All symptoms resolved No carotid stenosis Unable to do MRI due to mechanical valve Recommendations: Maintain Coumadin and therapeutic zone Aspirin Consult Acknowledgment - Thank you for your consult request.
[2016-10-21 15:30] VITALS: BP 114/78
--- NOTE | 2016-10-21 20:06 | Cons- Cardiology ---
General Information and HPI Consulting Request Date of Consult: 10/21/16 Requested By: DELMY JI MD Reason for Consult: CVA, mitral prosthesis Source of Information: old records History of Present Illness: This is a 76 y/o Female with a hx of atrial fibrillation, rheumatic heart disease s/p [employer] Judes Mechanical Mitral valve (2002), RBBB, diabetes, hypothyroidism, epistaxis requiring cautery, and HLD who presents to [place] with a chief complaint of numbness in her fingers starting yesterday morning with some decreased dexterity, noted when trying to peel a bananna which she dropped. Not associated with slurring of speech, facial droop, or visual changes. Was taking Coumadin but not ASA. Says INR levels have been good. No chest pain, dyspnea, palpitations, or syncope. No fever. She saw her PCP (Dr. Minaya) yesterday who advised her to go to ER for evaluation of her neurologic symptoms. Allergies/Medications Allergies: Uncoded Allergies: ENVIRONMENTAL ALLERGIES (Severe, PT. IS UNSURE ?SOB 10/15/12) Home Med List: Aspirin (Ecotrin) 81 MG TABLET.DR 81 MG PO EOD MECHANICAL VALVE (Reported) Atorvastatin Calcium (Lipitor) 10 MG TAB 10 MG PO DAILY HLD (Reported) DILTIAZEM HCL (Diltiazem 24HR Cd) 300 MG CAP.ER.24H 1 TAB PO DAILY HEART HEALTH (Reported) Furosemide (Lasix) 20 MG TABLET 1 TAB PO DAILY PULMONARY EDEMA Levothyroxine Sodium (Levothyroxine) 0.088 MG TAB 88 MG PO DAILY THYROID ( Reported) Metformin Hydrochloride (Metformin ER) [address] 500 MG PO DAILY SUGAR ( Reported) Warfarin Sodium 5 MG TABLET 5 MG PO DAILY MECHANICAL VALVE (Reported) Sunday Current Medications: Current Medications Sig/Nigel Start time Last Medication Dose Route Stop Time Status Admin Acetaminophen 650 MG Q6P PRN 10/20 1945 AC PO Aspirin Buffered 81 MG Q48 10/21 1000 AC 10/21 PO 0900 Atorvastatin Calcium 40 MG 1700 10/20 2130 AC 10/21 PO 1755 Benzonatate 100 MG TID 10/21 1020 AC 10/21 PO 1755 Diltiazem HCl 240 MG DAILY 10/21 1000 CAN PO Diltiazem HCl 300 MG DAILY 10/21 1000 AC 10/21 PO 0859 Enoxaparin Sodium 40 MG DAILY 10/21 1000 CAN SC Furosemide 20 MG DAILY 10/21 1000 AC 10/21 PO 0900 Insulin Aspart 0 TIDAC 10/21 0800 AC SC Levothyroxine Sodium 0.088 MG DAILY AC 10/21 0700 AC PO Metformin HCl 1,000 MG 0800,1700 10/21 0800 AC 10/21 PO 1755 Potassium Chloride 40 MEQ ONCE ONE 10/21 0945 DC 10/21 PO 10/21 0946 1125 Warfarin Sodium 5 MG COUMADIN 1700 ONE 10/21 1700 DC 10/21 PO 10/21 1701 1757 Review of Systems Review of Systems: As per above HPI. The remainder of a 10 point review of systems was reviewed and was otherwise negative. 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 Home Who Do You Live With? self Primary Language: Lithuanian Smoking Status: Former Smoker (Quit 25 Yrs Ago) ETOH Use: denies use Functional Ability ADLs Independent: dressing, eating, toileting, bathing. Ambulation: independent IADLs Independent: shopping, housework, finances, food prep, telephone, transportation , medication admin. Employment History Employment: Retired Exam & Diagnostic Data Vital Signs and I&O Vital Signs Date Time Temp Pulse Resp B/P Pulse O2 O2 Flow FiO2 Ox Delivery Rate 10/21 1530 98.0 81 20 114/78 96 Room Air 10/21 0902 97.5 84 20 114/78 95 Room Air 10/20 2154 97.8 88 18 124/88 98 Room Air Intake & Output 10/21 1600 10/21 0800 10/21 0000 10/20 1600 10/20 0800 10/20 0000 Intake Total 960 100 100 Output Total Balance 960 100 100 Intake, Oral 960 100 100 Patient 227 lb 227 lb Weight Physical Exam: General: comfortable, no distress Eyes: No obvious scleral icterus. HEENT: No jugular venous distention or abnormal jugular venous pulsations. Cardiovascular: Normal intensity S1/S2. Regular. [place] mechanical valve sounds. Respiratory: no rales or ronchi Abdomen: Soft, nontender with no guarding or rebound tenderness. Musculoskeletal: No clubbing or cyanosis noted, no edema Skin: Warm Neurologic: No gross focal deficits noted. Labs/Robin Results: Laboratory Tests 10/21 10/20 0704 1552 Chemistry Sodium (137 - 145 mmol/L) 141 141 Potassium (3.5 - 5.1 mmol/L) 3.6 3.7 Chloride (98 - 107 mmol/L) 102 99 Carbon Dioxide (22 - 30 mmol/L) 28 29 Anion Gap (5 - 16) 10 13 BUN (7 - 17 mg/dL) 14 17 Creatinine (0.5 - 1.0 mg/dL) 0.7 0.8 Estimated GFR (>60 ml/min) > 60 > 60 BUN/Creatinine Ratio (7 - 25 %) 20.0 21.3 Glucose (65 - 99 mg/dL) 133 H Calcium (8.4 - 10.2 mg/dL) 9.9 Magnesium (1.6 - 2.3 mg/dL) 1.5 L Total Bilirubin (0.2 - 1.3 mg/dL) 0.6 AST (14 - 36 U/L) 17 ALT (9 - 52 U/L) 31 Alkaline Phosphatase (<127 U/L) 109 Troponin I (< 0.11 ng/ml) < 0.01 Total Protein (6.3 - 8.2 g/dL) 7.7 Albumin (3.5 - 5.0 g/dL) 4.5 Globulin (1.9 - 4.2 gm/dL) 3.2 Albumin/Globulin Ratio (1.1 - 2.2 %) 1.4 Triglycerides (<150 mg/dL) 78 Cholesterol (<200 MG/DL) 136 LDL Cholesterol, Calc (65 - 129 mg/dL) 71 HDL Cholesterol (40 - 60 mg/dL) 50 Cholesterol/HDL Ratio (0.00 - 4.23 %) 3 Vitamin B12 (239 - 931 pg/mL) 624 Coagulation PT (9.4 - 12.5 SEC) 32.3 H 42.7 *H INR (0.90 - 1.19) 3.11 H 4.12 *H Hematology CBC w Diff NO MAN DIFF REQ NO MAN DIFF REQ WBC (4.8 - 10.8 /CUMM) 11.6 H 13.0 H RBC (4.20 - 5.40 /CUMM) 4.27 4.69 Hgb (12.0 - 16.0 G/DL) 12.9 14.0 Hct (37 - 47 %) 38.5 42.3 MCV (81.0 - 99.0 FL) 90.3 90.2 MCH (27.0 - 31.0 PG) 30.4 29.9 RDW (11.5 - 14.5 %) 14.5 14.8 H Plt Count (130 - 400 /CUMM) 218 258 MPV (7.4 - 10.4 FL) 9.8 8.9 Gran % (42.2 - 75.2 %) 70.6 74.3 Lymphocytes % (20.5 - 51.1 %) 19.6 L 17.0 L Monocytes % (1.7 - 9.3 %) 7.6 7.3 Eosinophils % (0 - 5 %) 1.8 1.1 Basophils % (0.0 - 2.0 %) 0.4 0.3 Absolute Granulocytes (1.4 - 6.5 /CUMM) 8.2 H 9.7 H Absolute Lymphocytes (1.2 - 3.4 /CUMM) 2.3 2.2 Absolute Monocytes (0.10 - 0.60 /CUMM) 0.9 H 1.0 H Absolute Eosinophils (0.0 - 0.7 /CUMM) 0.2 0.1 Absolute Basophils (0.0 - 0.2 /CUMM) 0 0 PUBS MCHC (33.0 - 37.0 G/DL) 33.6 33.2 Diagnostic Data EKG Results tracing personally reviewed, shows afib at 102 bpm with RBBB Other Results Carotid Doppler: IMPRESSION: No hemodynamically significant stenosis of the bilateral internal carotid arteries. Any stenosis is less than 50%. CT scan IMPRESSION: Small focus of abnormality right frontal lobe. The appearance is consistent with an ischemic insult. Appearance favors nonacute duration more likely subacute. Correlate with clinical findings and time course. Consider MRI as symptoms warrant for more detailed dating and assessment. Assessment/Plan Assessment/Plan 1. CVA versus TIA 2. Hx of PAF 3. Hx of RBBB 4. Rheumatic heart disease s/p St[employer] Judes Mechanical Mitral valve (2002) 5. Diabetes/hypothyroidism/HLD 6. Hx epistaxis requiring cautery Given symptoms and CT findings there is concern for acute CVA/TIA. No major carotid stenosis. Patient was not taking ASA despite the listed Med Rec. Coumadin level in therapeutic. Recommend daily ASA 81 mg in addition to daily Coumadin given CVA. ASA is indicated in addition to Coumadin for patients with mechanical mitral valves. Target INR should be 2.5-3.5. While I agree with increasing the daily statin I would suggest Lipitor 20 mg daily given the baseline lipid panel (was taking 10 mg daily as outpatient). Check an Echo given the CVA. No MRI given mechanical mitral valve. No plan for cardioversion. If any recurrent events while on ASA and therapeutic Coumadin a RICKI would be considered. Continue daily Cardizem. HR appears well controlled with no evidence of CHF. Puma Alex MD [facility] Consult Acknowledgment - Thank you for your consult request.
--- NOTE | 2016-10-22 01:25 | Event Note ---
Event Note Event Note: Around 10 PM on 10/21/16 patient complained of 9 out of 10 left-sided chest pain with no radiation and not associated with shortness of breath, nausea, vomiting or diaphoresis. Vitals were stable. Pain was reproducible on palpation. Patient was given 0.4 mg of sublingual nitroglycerin with subsequent resolution of pain. STAT EKG and troponin was ordered. EKG showed no ST-T wave abnormalities. Troponin was negative. Of note, AM labs showed Mg of 1.5, which was subsequently repleted. Potassium from AM labs was 3.6 but had been adequately repleted. Phosphorus was within normal limits. Repeat EKG and troponin was ordered for the morning.
[2016-10-22 08:14] VITALS: BP 140/88
[2016-10-22 08:31] LABS: ABSOLUTE BASOPHIL COUNT 0.1 /CUMM (0.0-0.2); ABSOLUTE EOSINOPHIL COUNT 0.2 /CUMM (0.0-0.7); ABSOLUTE GRANULOCYTE CT 6.6 /CUMM (1.4-6.5); ABSOLUTE LYMPH COUNT 2.5 /CUMM (1.2-3.4); ABSOLUTE MONOCYTE COUNT 0.8 /CUMM (0.10-0.60); BASOPHIL % 0.6 % (0.0-2.0); EOSINOPHIL % 2.1 % (0-5); GRANULOCYTE % 64.5 % (42.2-75.2); HEMATOCRIT 38.6 % (37-47); MEAN CORPUSCULAR HGB 30.4 PG (27.0-31.0); MEAN CORPUSCULAR HGB CONC 33.3 G/DL (33.0-37.0); MEAN CORPUSCULAR VOLUME 91.2 FL (81.0-99.0); MEAN PLATELET VOLUME 10.3 FL (7.4-10.4); PLATELET COUNT 216 /CUMM (130-400); RBC DISTRIBUTION WIDTH 14.3 % (11.5-14.5); RED BLOOD CELL CT 4.23 /CUMM (4.20-5.40); WHITE BLOOD CELL COUNT 10.2 /CUMM (4.8-10.8)
[2016-10-22 08:37] LABS: PT 22.8 SEC (9.4-12.5)
--- NOTE | 2016-10-22 10:05 | PN- Housestaff ---
Assessment/Plan Assessment: 76-year-old lady with a PMH of rheumatic fever, located with mitral valve disease S/P mechanical valve replacement, A. fib, frequent epistaxis S/P cauterization, HTN, HLD, DM and hypothyroidism who presented to [place] ED with complaints of left fingertip numbness. VS on admission: BP 136/70, HR 90, RR 20, SPO2 98% on RA, T 96.8 Pertinent labs: WBC 13.0, H&H 14.0/42.3, BUN/CR 17/0.8 EKG: A. fib, HR 79-119 bpm, RBBB, QTC 501. Head CT: Small focus of abnormality right frontal lobe. The appearance is consistent with an ischemic insult. Appearance favors nonacute duration more likely subacute. Correlate with clinical findings and time course. Consider MRI as symptoms warrant for more detailed dating and assessment. Carotid Doppler: No hemodynamically significant stenosis of the bilateral internal carotid arteries. Any stenosis is less than 50%. Problem list: 1. CVA 2. Atrial fibrillation 3. History of mechanical valve 4. Diabetes Plan: 1. CVA * CT head and carotid Doppler ultrasound findings as indicated above * We'll obtain cardiology consult. Patient may benefit from echocardiogram to assess valve leaflets * We'll continue aspirin 81 mg, atorvastatin 40 mg 2. Atrial fibrillation * INR and admission: 4.12, trended down to 3.11. Unclear if there was any episode of subtherapeutic INR prior to admission * We'll continue to dose Coumadin for INR goal of 2.5 through 3.5 3. History of mechanical valve * Recommendations as above 4. Diabetes * Patient requests to be continued and metformin while inpatient 5. Diet * Heart healthy 6. DVT prophylaxis * Coumadin 7. CODE STATUS * Full code Consulting Request: Consulting Specialty: Cardiology
--- NOTE | 2016-10-22 14:05 | CT SCAN REPORT ---
EXAMINATION: CT HEAD WITHOUT CONTRAST CLINICAL INFORMATION: 76-year-old woman with headache on oral anticoagulation. COMPARISON: 10/20/[address] TECHNIQUE: Contiguous axial imaging was performed from the skull base to vertex without intravenous administration of contrast. DLP: 529 mGy-cm. 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 No intracranial mass, hemorrhage, midline shift, or extra-axial collection is appreciated. The ventricles and sulcal spaces are age appropriate. The paranasal sinuses are well aerated. IMPRESSION: A small focus of suspected evolving embolic infarction in the right MCA territory is more conspicuous than on the previous exam.
[2016-10-22 15:30] VITALS: BP 122/92
--- NOTE | 2016-10-22 17:47 | PN- Cardiology ---
Subjective Subjective: Patient did complain of a headache today which was helped with pain medication. No residual neurologic defects. She did get a repeat head CT with no evidence of bleeding. Objective Vital Signs and I&Os Vital Signs Date Time Temp Pulse Resp B/P Pulse O2 O2 Flow FiO2 Ox Delivery Rate 10/22 1530 97.3 72 20 122/92 97 Room Air 10/22 0814 98.5 75 20 140/88 96 Room Air Intake & Output 10/22 1600 10/22 0800 10/22 0000 10/21 1600 10/21 0800 10/21 0000 Intake Total 100 100 960 100 100 Output Total Balance 100 100 960 100 100 Intake, Oral 100 100 960 100 100 Patient 227 lb Weight Physical Exam: General: comfortable, no distress Eyes: No obvious scleral icterus. HEENT: No jugular venous distention or abnormal jugular venous pulsations. Cardiovascular: Normal intensity S1/S2. Regular. [place] mechanical valve sounds. Respiratory: no rales or ronchi Abdomen: Soft, nontender with no guarding or rebound tenderness. Musculoskeletal: No clubbing or cyanosis noted, no edema Skin: Warm Neurologic: No gross focal deficits noted. Current Medications: Current Medications Sig/Nigel Start time Last Medication Dose Route Stop Time Status Admin Acetaminophen 650 MG Q8P PRN 10/22 1045 AC PO Acetaminophen 650 MG .STK-MED ONE 10/21 2210 DC PO 10/21 221 Acetaminophen 650 MG Q6P PRN 10/20 1945 DC 10/22 PO 0847 Aspirin Buffered 81 MG DAILY 10/22 1000 AC 10/22 PO 0838 Aspirin Buffered 81 MG Q48 10/21 1000 DC 10/21 PO 0900 Atorvastatin Calcium 20 MG 1700 10/22 1700 AC PO Atorvastatin Calcium 40 MG 10/20 2130 DC 10/21 PO 1755 Benzonatate 100 MG TID 10/21 1020 AC 10/22 PO 0837 Diltiazem HCl 300 MG DAILY 10/21 1000 AC 10/22 PO 0837 Furosemide 20 MG DAILY 10/21 1000 AC 10/22 PO 0837 Insulin Aspart 0 TIDAC 10/21 0800 AC SC Levothyroxine Sodium 0.088 MG DAILY AC 10/21 0700 AC 10/22 PO 0634 Magnesium Oxide 800 MG ONE ONE 10/21 2215 DC 10/21 PO 10/21 2215 221 Metformin HCl 1,000 MG 0800,1700 10/21 0800 AC 10/22 PO 0837 Nitroglycerin 0.4 MG ONCE ONE 10/21 221 DC 10/21 SL 10/21 221 2220 Oxycodone/ 1 TAB Q8P PRN 10/22 1045 AC 10/22 Acetaminophen PO 1121 Potassium Chloride 40 MEQ ONCE ONE 10/21 221 CAN PO 10/21 221 Warfarin Sodium 5 MG COUMADIN 1700 ONE 10/22 1700 DC PO 10/22 1701 Results Last 48 Hrs of Labs/Mics: Laboratory Tests 10/22/16 0624: Anion Gap 8, Estimated GFR > 60, BUN/Creatinine Ratio 21.4, Phosphorus 3.2, Troponin I < 0.01, PT 22.8 H, INR 2.19 H, CBC w Diff NO MAN DIFF REQ, RBC 4.23 , MCV 91.2, MCH 30.4, RDW 14.3, MPV 10.3, Gran % 64.5, Lymphocytes % 24.8, Monocytes % 8.0, Eosinophils % 2.1, Basophils % 0.6, Absolute Granulocytes 6.6 H, Absolute Lymphocytes 2.5, Absolute Monocytes 0.8 H, Absolute Eosinophils 0.2 , Absolute Basophils 0.1, PUBS MCHC 33.3 10/21/160: Troponin I 0.01 10/21/16 0704: Anion Gap 10, Estimated GFR > 60, BUN/Creatinine Ratio 20.0, Phosphorus 3.6, Magnesium 1.5 L, Triglycerides 78, Cholesterol 136, LDL Cholesterol, Calc 71, HDL Cholesterol 50, Cholesterol/HDL Ratio 3, PT 32.3 H, INR 3.11 H, CBC w Diff NO MAN DIFF REQ, RBC 4.27, MCV 90.3, MCH 30.4, RDW 14.5, MPV 9.8, Gran % 70.6, Lymphocytes % 19.6 L, Monocytes % 7.6, Eosinophils % 1.8, Basophils % 0.4, Absolute Granulocytes 8.2 H, Absolute Lymphocytes 2.3, Absolute Monocytes 0.9 H, Absolute Eosinophils 0.2, Absolute Basophils 0, PUBS MCHC 33.6 Recent Imaging Studies: Telemetry tracings were personally reviewed and show atrial fibrillation with some artifact Repeat Head CT IMPRESSION: A small focus of suspected evolving embolic infarction in the right MCA territory is more conspicuous than on the previous exam. Assessment/Plan Assessment/Plan 1. CVA 2. Hx of PAF 3. Hx of RBBB 4. Rheumatic heart disease s/p [facility] Judes Mechanical Mitral valve (2002) 5. Diabetes/hypothyroidism/HLD 6. Hx epistaxis requiring cautery/embolization Repeat head CT with no evidence of hemorrhagic transformation. Continue daily aspirin and adjust Coumadin to target INR 2.5-3.5, she is subtherapeutic today. If INR falls below 2.0 she may require bridging therapy given the recent neurologic event. Echo is pending. Heart rate is well-controlled. Puma Alex MD [facility] Continue telemetry? No
--- NOTE | 2016-10-22 19:50 | PN- Att Addend ---
Attending Addendum Attending Brief Note S: The patient was seen and discussed with house staff. No further left hand symptoms, however c/o significant frontal headache this morning. The patient does not normally have headaches. No other neuro symptoms. No chest pain, palpitations, etc. O: VS: Vital Signs Date Time Temp Pulse Resp B/P Pulse O2 O2 Flow FiO2 Ox Delivery Rate 10/22 0814 98.5 75 20 140/88 96 Room Air 10/21 1530 98.0 81 20 114/78 96 Room Air Intake & Output 10/22 1600 10/22 0800 10/22 0000 Intake Total 100 100 Output Total Balance 100 100 Intake, Oral 100 100 Current Medications Sig/Nigel Start time Last Medication Dose Route Stop Time Status Admin Acetaminophen 650 MG Q8P PRN 10/22 1045 AC PO Acetaminophen 650 MG .STK-MED ONE 10/21 221 DC PO 10/21 2212 Acetaminophen 650 MG Q6P PRN 10/20 1945 DC 10/22 PO 0847 Aspirin Buffered 81 MG DAILY 10/22 1000 AC 10/22 PO 0838 Aspirin Buffered 81 MG Q48 10/21 1000 DC 10/21 PO 0900 Atorvastatin Calcium 20 MG 1700 10/22 1700 AC PO Atorvastatin Calcium 40 MG 1700 10/20 2130 DC 10/21 PO 1755 Benzonatate 100 MG TID 10/21 1020 AC 10/22 PO 0837 Diltiazem HCl 300 MG DAILY 10/21 1000 AC 10/22 PO 0837 Furosemide 20 MG DAILY 10/21 1000 AC 10/22 PO 0837 Insulin Aspart 0 TIDAC 10/21 0800 AC SC Levothyroxine Sodium 0.088 MG DAILY AC 10/21 0700 AC 10/22 PO 0634 Magnesium Oxide 800 MG ONE 10/21 2215 DC 10/21 PO 10/21 221 2219 Metformin HCl 1,000 MG 0800,1700 10/21 0800 AC 10/22 PO 0837 Nitroglycerin 0.4 MG ONCE ONE 10/21 2215 DC 10/21 SL 10/21 2216 2220 Oxycodone/ 1 TAB Q8P PRN 10/22 1045 AC 10/22 Acetaminophen PO 1121 Potassium Chloride 40 MEQ ONCE ONE 10/21 2215 CAN PO 10/21 2216 Warfarin Sodium 5 MG COUMADIN 1700 ONE 10/22 1700 AC PO 10/22 1701 Warfarin Sodium 5 MG COUMADIN 1700 ONE 10/21 1700 DC 10/21 PO 10/21 1701 1757 Physical Exam: HEENT: eyes- PERRLA, EOMI damon- no lesions, moist mucosa Neck: no bruits or JVD Chest: clear Cor: RRR nl S1, S2 w/o murm Abd: BS+, soft, NT Ext: no edema Neuro: alert & oriented x 3, non-focal exam Labs/Tests: Laboratory Tests 10/22/16 0624: Anion Gap 8, Estimated GFR > 60, BUN/Creatinine Ratio 21.4, Phosphorus 3.2, Troponin I < 0.01, PT 22.8 H, INR 2.19 H, CBC w Diff NO MAN DIFF REQ, RBC 4.23 , MCV 91.2, MCH 30.4, RDW 14.3, MPV 10.3, Gran % 64.5, Lymphocytes % 24.8, Monocytes % 8.0, Eosinophils % 2.1, Basophils % 0.6, Absolute Granulocytes 6.6 H, Absolute Lymphocytes 2.5, Absolute Monocytes 0.8 H, Absolute Eosinophils 0.2 , Absolute Basophils 0.1, PUBS MCHC 33.3 10/21/16 2230: Troponin I 0.01 CT Head today: IMPRESSION: A small focus of suspected evolving embolic infarction in the right MCA territory is more conspicuous than on the previous exam. Impression/Plan: #CVA- s/p right MCA infarction (small). No clinical neuro deficits at present. Plan: Continue Coumadin/statin/ASA. Await ECHO report. #Headache- patient had moderately severe headache this morning and stated that she does not usually have headaches. Concern was for possible hemorrhagic conversion of CVA. CT above shows no bleeding and headache resolved post pain meds. Plan: Will observe for further symptoms. #S/P Mechanical Mitral Valve- on Coumadin. Plan ;Continue Coumadin and maintain INR in therapeutic range for mechanical valve. #Hypothyroid- on Levothyroxine and clinically euthyroid. Plan: Continue Levothyroxine.
--- NOTE | 2016-10-22 21:45 | ECHOCARDIOGRAM REPORT ---
CHELSEY SALINAS Age: 76 : 1940 Gender: F Exam Date: 10/22/2016 14:04 Exam Location: [address] [facility] Ht (in): 63 Wt (lb): 227 BSA: 2.19 BP: 140 / 88 Ordering Physician: CHEVY JOHNSTON MD Referring Physician: Jorge Alex M.D. Technologist: Minnie Ayers RDCS Room Number: 188 Indications: CARDIOMYOPATHY Rhythm: Atrial fibrillation Technical Quality: Technically difficult study FINDINGS Left Ventricle Left ventricular cavity size normal. Left ventricular wall thickness mildly increased. No obvious regional wall motion abnormalities. Left ventricular ejection fraction is estimated at > 55 %. Right Ventricle Right ventricle not well visualized, grossly normal. Right Atrium Mild right atrial dilatation. Left Atrium Moderate left atrial dilatation. Mitral Valve Mechanical prosthetic mitral valve with grossly normal leaflet motion (mean gradient 6 mmHg). Trace mitral regurgitation. Aortic Valve Aortic sclerosis. No aortic stenosis. Tricuspid Valve Tricuspid valve not well visualized, grossly normal. Mild tricuspid regurgitation. Right ventricular systolic pressure estimated at > 35 mmHg. Pulmonic Valve Pulmonic valve not well visualized, grossly normal. Pericardium No pericardial effusion. Great Vessels Normal size aortic root and proximal ascending aorta. CONCLUSIONS Technically difficult study. Left ventricular cavity size normal. Left ventricular wall thickness mildly increased. No obvious regional wall motion abnormalities. Left ventricular ejection fraction is estimated at > 55 %. Mild right atrial dilatation. Moderate left atrial dilatation. Mechanical prosthetic mitral valve with grossly normal leaflet motion (mean gradient 6 mmHg). Right ventricular systolic pressure estimated at > 35 mmHg. Jorge Alex M.D. (Electronically Signed) Final Date: 22 October 2016 21:44 MEASUREMENTS (Male / Female) Normal Values 2D ECHO LV Diastolic Diameter PLAX 3.6 cm 4.2 - 5.9 / 3.9 - 5.3 cm LV Systolic Diameter PLAX 2.3 cm 2.1 - 4.0 cm LV Fractional Shortening PLAX 36.1 % 25 - 46 % LV Ejection Fraction 2D Teich 66.7 % IVS Diastolic Thickness 1.3 cm LVPW Diastolic Thickness 1.3 cm LV Relative Wall Thickness 0.7 RV Internal Dim ED PLAX 3.1 cm 1.9 - 3.8 cm LVOT Diameter 1.8 cm Aortic Root Diameter 3.3 cm LA Systolic Diameter LX 5.0 cm 3.0 - 4.0 / 2.7 - 3.8 cm LA Volume 60.0 cm 18 - 58 / 22 - 52 cm Ascending Aorta Diameter 2.9 cm DOPPLER AV Peak Velocity 149.0 cm/s AV Peak Gradient 8.9 mmHg AV Mean Velocity 92.9 cm/s AV Mean Gradient 4.0 mmHg AV Velocity Time Integral 29.6 cm LVOT Peak Velocity 81.8 cm/s LVOT Peak Gradient 2.7 mmHg LVOT Mean Velocity 64.4 cm/s LVOT Mean Gradient 2.0 mmHg LVOT Velocity Time Integral 19.4 cm LVOT Stroke Volume 49.4 cm AV Area Cont Eq vti 1.7 cm AV Area Cont Eq pk 1.4 cm MV Peak Velocity 204.5 cm/s MV Peak Gradient 16.7 mmHg MV Mean Velocity 104.0 cm/s MV Mean Gradient 6.0 mmHg Mitral E Point Velocity 176.0 cm/s MV PHT Velocity 211.0 cm/s MV Deceleration Pender 1083.0 cm/s MV Pressure Half Time 58.4 ms MV Area PHT 3.8 cm MV Deceleration Time 201.0 ms TR Peak Velocity 267.0 cm/s TR Peak Gradient 28.5 mmHg Right Atrial Pressure 5.0 mmHg Pulmonary Artery Systolic Pressu 33.5 mmHg Right Ventricular Systolic Press 33.5 mmHg PV Peak Velocity 93.7 cm/s PV Peak Gradient 3.5 mmHg PV Mean Velocity 65.8 cm/s PV Mean Gradient 2.0 mmHg PV Velocity Time Integral 23.3 cm LV E' Lateral Velocity 11.3 cm/s Mitral E to LV E' Lateral Ratio 15.6 LV E' Septal Velocity 5.7 cm/s Mitral E to LV E' Septal Ratio 31.2
[2016-10-22 22:18] VITALS: BP 144/74
--- NOTE | 2016-10-23 07:38 | PN- Housestaff ---
JORGE MAIRE,KYE 10/23/16 0738: Subjective Follow-up For: Left hand weakness Tele-Events Since Last Visit: Reported between 80s to 90s. A defibrillation, no events Subjective: Patient feeling fine today. Denies headache. No weakness reported. Able to perform her regular activities. Review of Systems Constitutional: Reports: see HPI. Objective Last 24 Hrs of Vital Signs/I&O Vital Signs Date Time Temp Pulse Resp B/P Pulse O2 O2 Flow FiO2 Ox Delivery Rate 10/23 08 97.7 86 18 126/72 96 Room Air 10/22 2218 97.9 79 18 144/74 97 Room Air 10/22 1530 97.3 72 20 122/92 97 Room Air Intake & Output 10/23 1600 10/23 0800 10/23 0000 Intake Total 480 480 Output Total Balance 480 480 Intake, Oral 480 480 Physical Exam General Appearance: Alert, Oriented X3, Cooperative, No Acute Distress Skin: No Rashes Cardiovascular: Regular Rate, Normal S1, Normal S2, No Murmurs Lungs: Clear to Auscultation Abdomen: Normal Bowel Sounds, Soft, No Tenderness Neurological: Normal Gait, Normal Speech, Normal Tone, Sensation Intact Extremities: No Clubbing, No Cyanosis, No Edema Current Medications: Current Medications Sig/Nigel Start time Last Medication Dose Route Stop Time Status Admin Acetaminophen 650 MG Q8P PRN 10/22 1045 AC PO Aspirin Buffered 81 MG DAILY 10/22 1000 AC 10/23 PO 1033 Atorvastatin Calcium 20 MG 1700 10/22 1700 AC 10/22 PO 1931 Benzonatate 100 MG TID 10/21 1020 AC 10/23 PO 1033 Diltiazem HCl 300 MG DAILY 10/21 1000 AC 10/23 PO 1033 Furosemide 20 MG DAILY 10/21 1000 AC 10/23 PO 1033 Insulin Aspart 0 TIDAC 10/21 0800 AC SC Levothyroxine Sodium 0.088 MG DAILY AC 10/21 0700 AC 10/23 PO 0520 Melatonin 3 MG ONCE ONE 10/220 DC 10/22 PO 10/22 Metformin HCl 1,000 MG 0800,1700 10/21 0800 AC 10/23 PO 1033 Oxycodone/ 1 TAB Q8P PRN 10/22 1045 AC 10/22 Acetaminophen PO 1121 Warfarin Sodium 5 MG COUMADIN 1700 ONE 10/22 1700 DC 10/22 PO 10/22 1701 1931 Last 24 Hrs of Lab/Robin Results Last 24 Hrs of Labs/Mics: Laboratory Tests 10/23/16 0746: PT 23.8 H, INR 2.29 H Assessment/Plan Assessment: 76-year-old lady with a PMH of rheumatic fever, located with mitral valve disease S/P mechanical valve replacement, A. fib, frequent epistaxis S/P cauterization, HTN, HLD, DM and hypothyroidism who presented to [place] ED with complaints of left fingertip numbness. Head CT: Small focus of abnormality right frontal lobe. The appearance is consistent with an ischemic insult. Appearance favors nonacute duration more likely subacute. Correlate with clinical findings and time course. Consider MRI as symptoms warrant for more detailed dating and assessment. Carotid Doppler: No hemodynamically significant stenosis of the bilateral internal carotid arteries. Any stenosis is less than 50%. Problem list: 1. CVA 2. Atrial fibrillation 3. History of mechanical valve 4. Diabetes Plan: 1. CVA * CT head and carotid Doppler ultrasound findings as indicated above * Echocardiogram showed normal ejection fraction with no thrombus * We'll continue aspirin 81 mg, atorvastatin 40 mg 2. Atrial fibrillation * INR today is 2.29. Unclear if there was any episode of subtherapeutic INR prior to admission * We'll continue to dose Coumadin for INR goal of 2.5 through 3.5 3. History of mechanical valve * Recommendations as above 4. Diabetes * Patient requests to be continued and metformin while inpatient 5. Diet * Heart healthy 6. DVT prophylaxis * Coumadin 7. CODE STATUS * Full code Problem List: 1. Numbness of left hand 2. T2DM (type 2 diabetes mellitus) 3. CVA (cerebral vascular accident) Pain Ratin Pain Location: none Pain Goal: Remain pain free Pain Plan: tylenol Tomorrow's Labs & Rationales: not needed Consulting Request: Consulting Specialty: Cardiology REILLY GARNICA MD 10/23/162: Attending MD Review Statement Attending Statement Attending Statement: examined this patient, discuss w/resident/PA/CELL ASSEMBLY PINNER, agreed w/resident/PA/CELL ASSEMBLY PINNER, discussed with family, reviewed EMR data (avail), discussed with nursing, discussed with case mgmt, reviewed images, amended to note Attending Assessment/Plan: The patient was seen and discussed with house staff. OK to discharge to home today. ECHO unremarkable.
[2016-10-23 08:24] VITALS: BP 126/72
[2016-10-23 08:44] LABS: PT 23.8 SEC (9.4-12.5)
[2016-10-23] MEDS ORDERED: ATORVASTATIN CA20 M1 PO (09:34)
--- NOTE | 2016-10-23 09:38 | Patient Discharge Instructions ---
Discharge Instructions General Discharge Information You were seen/treated for: Numbness of the fingers with CAT scan showing stroke Special Instructions: 1. Follow-up with primary care physician in a week upon discharge 2. Follow-up with cardiology. 3. Follow-up INR on 10/24/2016. Please call your primary care physician for recommendation on Coumadin. 4. Please take aspirin on a regular basic Please return to ED if any symptoms of weakness, numbness, unable to speak, severe headache, unable to swallow. Diet Recommended Diet: Diabetic Activity Full Activity/No Limits: Yes Acute Coronary Syndrome Inclusion Criteria At DC or during hospital stay patient has or had the following: ACS DIAGNOSIS No Discharge Core Measures Meds if any: Prescribed or Continued at Discharge Meds if any: NOT Prescribed or Continued at Discharge Congestive Heart Failure Inclusion Criteria At DC or during hospital stay patient has or had the following: CHF DIAGNOSIS No Discharge Core Measures Meds if any: Prescribed or Continued at Discharge Meds if any: NOT Prescribed or Continued at Discharge Cerebrovascular accident Inclusion Criteria At DC or during hospital stay patient has or had the following: CVA/TIA Diagnosis Yes Discharge Core Measures Meds if any: Prescribed or Continued at Discharge Antithrombotic Yes Statin (required if LDL =>70) Yes Anticoagulant Yes Meds if any: NOT Prescribed or Continued at Discharge Venous thromboembolism Inclusion Criteria VTE Diagnosis No VTE Type NONE VTE Confirmed by (Test) NONE Discharge Core Measures - Per Current guidelines, there needs to be overlap - treatment for the first 5 days of Warfarin therapy. - If discharged on Warfarin prior to 5 days of - overlap therapy, the patient will need to be - assessed for post discharge needs including - *Post discharge parental anticoagulation - *Warfarin and/or parental anticoagulation education - *Follow up date to check INR post discharge At least 5 days overlap therapy as Inpatient No Meds if any: Prescribed or Continued at Discharge Note: Overlap Therapy is Warfarin and Anticoagulant Meds if any: NOT Prescribed or Continued at Discharge
--- NOTE | 2016-10-23 09:49 | Discharge Summary ---
Visit Information Visit Dates Admission Date: 10/21/16 Discharge Date: 10/23/16 Hospital Course Course Attending Physician: REILLY GARNICA MD Primary Care Physician: ANTONIO MAIER,JEAN MARIE Byers Consulting Request: Consulting Specialty: Cardiology Hospital Course: 76 y/o F with PMHx of rheumatic fever c/b mitral valve disease s/p mechanical valve replacement, atrial fibrillation on warfarin, frequent nose bleeds s/p nasal cautery, HTN, HLD, T2DM and hypothyroidism who presents with numbness involving the fingertips of her left hand which started the morning of current presentation Vitals and admission: Blood pressure 136/70, respiration 20, pulse rate 98, temperature 96.8, oxygen saturation 98% on room air. Labs a on admission: WBC 13.0, hemoglobin 14.0, hematocrit 42.3, platelet 250, sodium 141, potassium, BUN 17, creatinine 0.8, troponin less than 0.01, INR 4.12 , total bilirubin 0.6. EKG showed atrial fibrillation with heart rate 79, right bundle branch block Imaging on admission CT head without IV contrast showed small focus of abnormality of the right frontal lobe, appearance is consistent with an ischemic insult appearance favors nonacute duration more likely subacute. Hospital course 1. Subacute stroke involving the right MCA territory: Patient was admitted to telemetry floor. She was started on aspirin, atorvastatin increased from 10 mg to 40 mg. She was placed on neurochecks. Neurology consult was obtained who agreed with the above management and MRA was deferred as patient has mechanical mitral valve. She had a supratherapeutic INR on admission which is unlikely for an acute stroke but since CAT scan showed a subacute picture she could have had subtherapeutic INR over the last couple of weeks which could have precipitated clot formation and an embolic event. Repeat CAT scan was obtained as she was complaining right frontal headache to rule out intracranial bleed which came back negative for intracranial bleed but did show evidence of A small focus of suspected evolving embolic infarction in the right MCA territory. Echocardiogram obtained showed a normal ejection fraction with no thrombus seen and mechanical prosthetic mitral valve with grossly normal leaflet motion. Her weakness improved over the next 24 hours. Per Cardiology recommendation she should be on both aspirin and Coumadin given her mechanical mitral valve. INR should be maintained between 2.5-3.5. SHe was continued on Cardizem at her home dose. Carotid ultrasound was obtained which showed no hemodynamically significant stenosis of the bilateral internal carotid arteries. 2. Atrial fibrillation: INR was supratherapeutic on admission which trended down. 3. Rheumatic heart disease s/p [employer] Mechanical Mitral valve (2002): She was continued on Coumadin 4. Diabetes mellitus: Was started on NovoLog sliding scale. Can resume her oral antidiabetic medications upon discharge 5. Hypothyroidism: As continued on levothyroxine 6. Hyperlipidemia: On statins Allergies: Uncoded Allergies: ENVIRONMENTAL ALLERGIES (Severe, PT. IS UNSURE ?SOB 10/15/12) Pertinent Lab Results: Laboratory Tests 10/23 10/22 10/21 0746 0624 2230 Chemistry Sodium (137 - 145 mmol/L) 139 Potassium (3.5 - 5.1 mmol/L) 3.8 Chloride (98 - 107 mmol/L) 103 Carbon Dioxide (22 - 30 mmol/L) 27 Anion Gap (5 - 16) 8 BUN (7 - 17 mg/dL) 15 Creatinine (0.5 - 1.0 mg/dL) 0.7 Estimated GFR (>60 ml/min) > 60 BUN/Creatinine Ratio (7 - 25 %) 21.4 Phosphorus (2.5 - 4.5 mg/dL) 3.2 Troponin I (< 0.11 ng/ml) < 0.01 0.01 Coagulation PT (9.4 - 12.5 SEC) 23.8 H 22.8 H INR (0.90 - 1.19) 2.29 H 2.19 H Hematology CBC w Diff NO MAN DIFF REQ WBC (4.8 - 10.8 /CUMM) 10.2 RBC (4.20 - 5.40 /CUMM) 4.23 Hgb (12.0 - 16.0 G/DL) 12.9 Hct (37 - 47 %) 38.6 MCV (81.0 - 99.0 FL) 91.2 MCH (27.0 - 31.0 PG) 30.4 RDW (11.5 - 14.5 %) 14.3 Plt Count (130 - 400 /CUMM) 216 MPV (7.4 - 10.4 FL) 10.3 Gran % (42.2 - 75.2 %) 64.5 Lymphocytes % (20.5 - 51.1 %) 24.8 Monocytes % (1.7 - 9.3 %) 8.0 Eosinophils % (0 - 5 %) 2.1 Basophils % (0.0 - 2.0 %) 0.6 Absolute Granulocytes (1.4 - 6.5 /CUMM) 6.6 H Absolute Lymphocytes (1.2 - 3.4 /CUMM) 2.5 Absolute Monocytes (0.10 - 0.60 /CUMM) 0.8 H Absolute Eosinophils (0.0 - 0.7 /CUMM) 0.2 Absolute Basophils (0.0 - 0.2 /CUMM) 0.1 PUBS MCHC (33.0 - 37.0 G/DL) 33.3 10/21 10/20 0704 1552 Chemistry Sodium (137 - 145 mmol/L) 141 141 Potassium (3.5 - 5.1 mmol/L) 3.6 3.7 Chloride (98 - 107 mmol/L) 102 99 Carbon Dioxide (22 - 30 mmol/L) 28 29 Anion Gap (5 - 16) 10 13 BUN (7 - 17 mg/dL) 14 17 Creatinine (0.5 - 1.0 mg/dL) 0.7 0.8 Estimated GFR (>60 ml/min) > 60 > 60 BUN/Creatinine Ratio (7 - 25 %) 20.0 21.3 Glucose (65 - 99 mg/dL) 133 H Calcium (8.4 - 10.2 mg/dL) 9.9 Phosphorus (2.5 - 4.5 mg/dL) 3.6 Magnesium (1.6 - 2.3 mg/dL) 1.5 L Total Bilirubin (0.2 - 1.3 mg/dL) 0.6 AST (14 - 36 U/L) 17 ALT (9 - 52 U/L) 31 Alkaline Phosphatase (<127 U/L) 109 Troponin I (< 0.11 ng/ml) < 0.01 Total Protein (6.3 - 8.2 g/dL) 7.7 Albumin (3.5 - 5.0 g/dL) 4.5 Globulin (1.9 - 4.2 gm/dL) 3.2 Albumin/Globulin Ratio (1.1 - 2.2 %) 1.4 Triglycerides (<150 mg/dL) 78 Cholesterol (<200 MG/DL) 136 LDL Cholesterol, Calc (65 - 129 mg/dL) 71 HDL Cholesterol (40 - 60 mg/dL) 50 Cholesterol/HDL Ratio (0.00 - 4.23 %) 3 Vitamin B12 (239 - 931 pg/mL) 624 Coagulation PT (9.4 - 12.5 SEC) 32.3 H 42.7 *H INR (0.90 - 1.19) 3.11 H 4.12 *H Hematology CBC w Diff NO MAN DIFF REQ NO MAN DIFF REQ WBC (4.8 - 10.8 /CUMM) 11.6 H 13.0 H RBC (4.20 - 5.40 /CUMM) 4.27 4.69 Hgb (12.0 - 16.0 G/DL) 12.9 14.0 Hct (37 - 47 %) 38.5 42.3 MCV (81.0 - 99.0 FL) 90.3 90.2 MCH (27.0 - 31.0 PG) 30.4 29.9 RDW (11.5 - 14.5 %) 14.5 14.8 H Plt Count (130 - 400 /CUMM) 218 258 MPV (7.4 - 10.4 FL) 9.8 8.9 Gran % (42.2 - 75.2 %) 70.6 74.3 Lymphocytes % (20.5 - 51.1 %) 19.6 L 17.0 L Monocytes % (1.7 - 9.3 %) 7.6 7.3 Eosinophils % (0 - 5 %) 1.8 1.1 Basophils % (0.0 - 2.0 %) 0.4 0.3 Absolute Granulocytes (1.4 - 6.5 /CUMM) 8.2 H 9.7 H Absolute Lymphocytes (1.2 - 3.4 /CUMM) 2.3 2.2 Absolute Monocytes (0.10 - 0.60 /CUMM) 0.9 H 1.0 H Absolute Eosinophils (0.0 - 0.7 /CUMM) 0.2 0.1 Absolute Basophils (0.0 - 0.2 /CUMM) 0 0 PUBS MCHC (33.0 - 37.0 G/DL) 33.6 33.2 Disposition Summary Disposition Principal Diagnosis: 1. Subacute stroke involving the right MCA territory Additional Diagnosis: 1. Atrial fibrillation 2. Rheumatic heart disease s/p [employer] Jud[employer] Mechanical Mitral valve (2002) 3. Diabetes mellitus 4. Hypothyroidism 5. Hyperlipidemia Discharge Disposition: home or self care Discharge Instructions General Discharge Information Code Status: Full Code Patient's Diet: Diabetic diet Patient's Activity: 1. As tolerated Follow-Up Instructions/Appts: 1. Follow-up with primary care physician a week upon discharge 2. Follow-up with her regular tong hooker Medications at Discharge Discharge Medications: Stop taking the following medications: Atorvastatin Calcium (Lipitor) 10 MG TAB ORAL DAILY Continue taking these medications: Levothyroxine Sodium (Levothyroxine) 0.088 MG TAB 88 Milligram ORAL DAILY Metformin Hydrochloride (Metformin ER) [address] Milligram ORAL DAILY Warfarin Sodium (Warfarin Sodium) 5 MG TABLET 5 Milligram ORAL DAILY Instructions: Sunday Aspirin (Ecotrin) 81 MG TABLET.DR 81 Milligram ORAL Every other day DILTIAZEM HCL (Diltiazem 24HR Cd) 300 MG CAP.ER.24H 1 Tablet ORAL DAILY Furosemide (Lasix) 20 MG TABLET 1 Tablet ORAL DAILY Qty = 14 Start taking the following new medications: Atorvastatin Calcium (Atorvastatin Calcium) 20 MG TABLET 20 Milligram ORAL 5 PM Days = 30 No Refills Copies To: ANTONIO MAIER,JEAN MARIE Byers Attending MD Review Statement Documenting Attending: REILLY GARNICA MD Other Findings: The patient was seen and discussed with house staff. Agree with plan of care upon discharge.
--- NOTE | 2016-10-23 09:59 | NUR ---
Physical Therapy: Chart reviewed this morning for treatment. Pt observed ambulating I without AD down hallway of unit. Steady gait noted without gross deviations. Acute skilled PT is no longer indicated at this time. Thank you.
--- NOTE | 2016-10-23 12:24 | PN- Cardiology ---
Subjective Subjective: The patient is awake, alert The results of the echocardiogram performed on October 22 were reviewed The events of the last 24 hours as well as telemetry were reviewed. Review of Systems: The review of systems is negative for chest pains, palpitations nor lightheadedness. The remainder of the 14 point review of systems is noncontributory with the exception of above. Objective Vital Signs and I&Os Vital Signs Date Time Temp Pulse Resp B/P Pulse O2 O2 Flow FiO2 Ox Delivery Rate 10/23 0824 97.7 86 18 126/72 96 Room Air 10/22 2218 97.9 79 18 144/74 97 Room Air 10/22 1530 97.3 72 20 122/92 97 Room Air Intake & Output 10/23 1600 10/23 0800 10/23 0000 10/22 1600 10/22 0000 Intake Total 480 480 100 100 Output Total Balance 480 480 100 100 Intake, Oral 480 480 100 100 Physical Exam: General: Nontoxic, no apparent distress. HEENT: Sclera and conjunctiva within normal limits, without xanthelasmas. Neck: Carotids 2+ without bruits. Respiratory: Clear to auscultation, air movement is good, without accessory respiratory muscle use. Heart: Regular rate and rhythm, without murmurs, without JVD. Abdomen: Soft, nontender, no masses, normoactive bowel sounds. Extremities: Without clubbing, cyanosis, without edema. Neuro: Nonfocal exam, strength, 5 out of 5 Skin: Within normal limits without lesions. Psych: Mood and affect: Normal Current Medications: Current Medications Sig/Nigel Start time Last Medication Dose Route Stop Time Status Admin Acetaminophen 650 MG Q8P PRN 10/22 1045 AC PO Aspirin Buffered 81 MG DAILY 10/22 1000 AC 10/23 PO 1033 Atorvastatin Calcium 20 MG 1700 10/22 1700 AC 10/22 PO 1931 Benzonatate 100 MG TID 10/21 1020 AC 10/23 PO 1033 Diltiazem HCl 300 MG DAILY 10/21 1000 AC 10/23 PO 1033 Furosemide 20 MG DAILY 10/21 1000 AC 10/23 PO 1033 Insulin Aspart 0 TIDAC 10/21 0800 AC SC Levothyroxine Sodium 0.088 MG DAILY AC 10/21 0700 AC 10/23 PO 0520 Melatonin 3 MG ONCE ONE 10/220 DC 10/22 PO 01/29 2131 2137 Metformin HCl 1,000 MG 0800,1700 10/21 0800 AC 10/23 PO 1033 Oxycodone/ 1 TAB Q8P PRN 10/22 1045 AC 10/22 Acetaminophen PO 1121 Warfarin Sodium 5 MG COUMADIN 1700 ONE 10/22 1700 DC 10/22 PO 10/22 1701 1931 Results Last 48 Hrs of Labs/Mics: Laboratory Tests 10/23/16 0746: PT 23.8 H, INR 2.29 H 10/22/16 0624: Anion Gap 8, Estimated GFR > 60, BUN/Creatinine Ratio 21.4, Phosphorus 3.2, Troponin I < 0.01, PT 22.8 H, INR 2.19 H, CBC w Diff NO MAN DIFF REQ, RBC 4.23 , MCV 91.2, MCH 30.4, RDW 14.3, MPV 10.3, Gran % 64.5, Lymphocytes % 24.8, Monocytes % 8.0, Eosinophils % 2.1, Basophils % 0.6, Absolute Granulocytes 6.6 H, Absolute Lymphocytes 2.5, Absolute Monocytes 0.8 H, Absolute Eosinophils 0.2 , Absolute Basophils 0.1, PUBS MCHC 33.3 10/21/16 2230: Troponin I 0.01 Assessment/Plan Assessment/Plan 1. CVA 2. Hx of PAF 3. Hx of RBBB 4. Rheumatic heart disease s/p [facility] Mechanical Mitral valve (2002) 5. Diabetes/hypothyroidism/HLD 6. Hx epistaxis requiring cautery/embolization CVA: The patient's presentation is consistent with possible TIA versus small CVA. The etiology however is unclear. The patient must remain on anticoagulation given a mechanical mitral valve, and has known paroxysmal atrial fibrillation. We will continue her current medication regimen at this time. Mechanical mitral valve: The patient underwent an echocardiogram demonstrated normal functioning and appearance of the mitral valve. We will continue with current medication regimen and target an INR between 2 and 3. Paroxysmal atrial fibrillation: Trolled. The patient will continue with anticoagulation as above. Continue telemetry? No
== END 2016-10-23 13:45 | DRG 66 ==
LOC: ENRESERVDT → ENRESERVTM → ERH 13:29 → ERHI 19:15 → EDBEDREQ 19:50 → 1NO 21:33
PROVIDERS: Physician Assistant; Student in an Organized Health Care Education/Training Program; ADMIT Internal Medicine
DX: I63.9 Cerebral infarction, unspecified (principal); I48.0 Paroxysmal atrial fibrillation; E11.9 Type 2 diabetes mellitus without complications; I09.89 Other specified rheumatic heart diseases; Z79.84 Long term (current) use of oral hypoglycemic drugs; R20.0 Anesthesia of skin; I45.10 Unspecified right bundle-branch block; Z95.2 Presence of prosthetic heart valve; Z79.01 Long term (current) use of anticoagulants; I10 Essential (primary) hypertension; Z87.891 Personal history of nicotine dependence; E03.9 Hypothyroidism, unspecified; R51 Headache
CPT/HCPCS: 1NP; 36415; 82436; 93005; 93010; 93306; 97116-GP; 97161-GP; 97165-GO; G0463; J1650; J3490

== ENCOUNTER 2016-12-06 11:27 | Emergency (ER) | payer OTHER ==
[~2016-12-06] VITALS: Ht 160 cm; Wt 100.7 kg
[~2016-12-06 11:27] MED LIST changes: +ATORVASTATIN CA20 M1 PO
--- NOTE | 2016-12-06 12:21 | ED NOSE COMPLAINT ---
History of Present Illness General Chief Complaint: General Adult Stated Complaint: NOSE BLEED Source: patient Exam Limitations: no limitations Allergies Uncoded Allergies: ENVIRONMENTAL ALLERGIES (Severe, PT. IS UNSURE ?SOB 10/15/12) Triage Note: 76 Y/O FEMALE C/O EVALUATION FOR NOSEBLEED THIS AM. STATES SHE CALLED THE AMBULANCE BUT, BY THE TIME THEY ARRIVED IT STOPPED SO REFUSED TRANSPORT AND DROVE SELF TO ED. NO BLEEDING NOTED AT PRESENT. PT STATES SHE IS ON COUMADIN AND DUE TOMORROW FOR INR CHECK: LAST INR 2.4 ON 11/29/16 Triage Nurses Notes Reviewed? yes HPI: This patient is a 76-year-old female with a past medical history including recurrent epistaxis presented to the emergency department today for right-sided nosebleed. The patient reported that she had a nosebleed for approximately 5-10 minutes today. It stopped after she applied pressure. She reported that her last Coumadin check was 2.4. She is due to go to the Coumadin clinic tomorrow for a redraw. The patient is also planning on scheduling an appointment today with her ear nose and throat physician. She reported that she has not had any recurrence of nosebleed after the initial episode today. She denied any blurry vision, headaches, chest pain, difficulty breathing, or any other associated symptoms. (JANET LEVIN,JACOBO) Vital Signs & Intake/Output Vital Signs & Intake/Output ED Intake and Output 12/07 0000 12/06 1200 Intake Total Output Total Balance Patient 222 lb Weight Reconcile Medications Aspirin (Ecotrin*) 81 MG TABLET.DR 1 TAB PO Q48 HEART HEALTH (Reported) Atorvastatin Calcium 20 MG TABLET 20 MG PO 1700 stroke Cholecalciferol (Vitamin D3) (Vitamin D) 1,000 UNIT TABLET 1 TAB PO DAILY SUPPLEMENT (Reported) Diltiazem HCl (Diltiazem 24HR Cd) 300 MG CAP.ER.24H 1 CAP PO DAILY HEART ( Reported) Furosemide 20 MG TABLET 1 TAB PO DAILY WATER PILL (Reported) Levothyroxine Sodium 88 MCG TABLET 1 TAB PO DAILY AC THYROID (Reported) Metformin HCl 500 MG TABLET 1 TAB PO DAILY DM (Reported) Warfarin Sodium (Coumadin) 5 MG TABLET 1 TAB PO 1700 BLOOD THINNER (Reported) (LESVIA ALEXANDRA DO) Past History Travel History Traveled to [place] past 21 day No Medical History Any Pertinent Medical History? 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 No (JACOBO GONZALES PA-C) Review of Systems Review of Systems Constitutional: Reports: no symptoms. EENTM: Reports: see HPI. Respiratory: Reports: no symptoms. Cardiovascular: Reports: no symptoms. GI: Reports: no symptoms. Musculoskeletal: Reports: no symptoms. Skin: Reports: no symptoms. Neurological/Psychological: Reports: no symptoms. All Other Systems: Reviewed and Negative (JACOBO GONZALES PA-C) Physical Exam Physical Exam Nose: dried blood noted in the right nare. Atraumatic. No active bleeding. No foreign body appreciated Comments: Well-developed well-nourished person in no acute distress HEENT: Head normocephalic, moist mucous membranes Neck: Supple, no lymphadenopathy Back: Normal gait Respiratory: No respiratory distress. Speaking in full sentences Extremities: No edema, full range of motion Neuro: Alert and oriented x3 Psych: Mood affect normal, normal memory normal judgment. Skin: Warm and dry, no rash on exposed skin (JACOBO GONZALES PA-C) Progress Differential Diagnoses I considered the following diagnoses in my evaluation of the patient: [Epistaxis , hypertension, hypertensive crisis, digital trauma, von Willebrand's] Plan of Care: This patient is a 76-year-old female who presented for evaluation of epistaxis. No active bleeding at this time. On physical examination there is dried blood in the right nare with no signs of trauma or foreign body. Vital signs are stable. This patient is stable for outpatient follow-up with her ENT physician in follow-up in the Coumadin clinic tomorrow. Initial ED EKG: none (JACOBO GONZALES PA-C) Departure Departure Disposition: HOME OR SELF CARE Condition: Stable Clinical Impression Primary Impression: Epistaxis Referrals: ANTONIO MAIER,JEAN MARIE Byers (PCP/Family) Additional Instructions: Please call your ENT physician as discussed to schedule a follow-up appointment. Please be sure to attend to her previously scheduled appointment at the Coumadin clinic tomorrow. Return for any worsening symptoms or concerns. Departure Forms: Customer Survey General Discharge Information (JANET LEVIN,JACOBO) PA/ASSEMBLY HAND Co-Sign Statement Statement: ED Attending supervision documentation- [X I saw and evaluated the patient. I have also reviewed all the pertinent lab results and diagnostic results. I agree with the findings and the plan of care as documented in the PA's/ASSEMBLY HAND's documentation. [] I have reviewed the ED Record and agree with the PA's/ASSEMBLY HAND's documentation. [] Additions or exceptions (if any) to the PAs/ASSEMBLY HAND's note and plan are summarized below: [] (LESVIA ALEXANDRA DO)
[2016-12-06] MEDS ORDERED: VITAMIN D1000 UNIT PO (12:23)
[2016-12-06] MEDS ORDERED: FUROSEMIDE20 M1 PO (12:25)
== END 2016-12-06 12:27 ==
LOC: ERH 11:27
DX: R04.0 Epistaxis (principal); Z79.01 Long term (current) use of anticoagulants

== ENCOUNTER 2016-12-08 19:07 | Emergency (ER) | payer OTHER ==
[~2016-12-08] VITALS: Ht 160 cm; Wt 100.7 kg
[~2016-12-08 19:07] MED LIST changes: +FUROSEMIDE20 M1 PO; +VITAMIN D1000 UNIT PO
--- NOTE | 2016-12-08 20:24 | ED NOSE COMPLAINT ---
History of Present Illness General Chief Complaint: General Adult Stated Complaint: RHINO ROCKET LEAKING PER PT Source: patient Exam Limitations: no limitations Vital Signs & Intake/Output Vital Signs & Intake/Output Vital Signs Date Time Temp Pulse Resp B/P Pulse O2 O2 Flow FiO2 Ox Delivery Rate 12/08 2030 Room Air 12/08 1932 96.9 90 16 162/105 97 Room Air Allergies Uncoded Allergies: ENVIRONMENTAL ALLERGIES (Severe, PT. IS UNSURE ?SOB 10/15/12) Reconcile Medications Acetaminophen/Diphenhydramine (Acetaminophen Pm Gelcap) 500 MG-25 MG TABLET 1 TAB PO QPM SLEEP (Reported) Aspirin (Ecotrin*) 81 MG TABLET.DR 1 TAB PO DAILY HEART/BLOOD (Reported) Atorvastatin Calcium 20 MG TABLET 20 MG PO 1700 stroke Benzonatate 200 MG CAPSULE 1 CAP PO TIDPRN PRN COUGH (Reported) Cholecalciferol (Vitamin D3) (Vitamin D) 1,000 UNIT TABLET 1 TAB PO DAILY SUPPLEMENT (Reported) Diltiazem HCl (Diltiazem 24HR Cd) 300 MG CAP.ER.24H 1 CAP PO DAILY HEART ( Reported) Furosemide 20 MG TABLET 1 TAB PO DAILY WATER PILL (Reported) Levothyroxine Sodium 88 MCG TABLET 1 TAB PO DAILY AC THYROID (Reported) Metformin HCl (Metformin HCl ER) 500 MG TAB.ER.24H 4 TAB PO QPM DM (Reported) Warfarin Sodium (Coumadin) 5 MG TABLET 1 TAB PO AD BLOOD THINNER (Reported) Warfarin Sodium (Coumadin) 7.5 MG TABLET 1 TAB PO AD BLOOD THINNER (Reported) Triage Note: PT TO ER FOR EVALUATION OF NOSE BLEED. PT PCP PLACED BALLOON 3DAYS AGO AND PT WENT TO TAKE OUT TODAY AND IT WAS WORSE. PUT BACK IN FOR 5 MORE DAYS BUT PER PT ITS LEAKING Triage Nurses Notes Reviewed? yes Onset: Abrupt Duration: better Timing: single episode today Severity: mild Severity Numbers: 1 HPI: Patient is a 76-year-old female with a past medical history of mitral valve replacement/ AFIB currently on Coumadin and multiple reoccurrence of epistasis who presents emergency room seen that last week patient was evaluated by ENT Dr. Cabrera in which she received a Rhino Rocket placement 3 days ago in which follow- up was today to remove the Rhino Rocket however bleeding then reoccurred and a new Rhino Rocket was placed to the right nares. Patient complains of intermittent mild nasal drainage PINK in color. Denies any mechanism injury. Last INR was performed yesterday 2.1 noted by patient. Denies any bleeding to the back of the throat. Denies any dizziness weakness or fatigue PATIENT CURRENTLY IS ON ANTIBIOTIC PROPHYLACTIC prescribe by ENT doctor (MAXIME HORNE) Past History Travel History Traveled to [place] past 21 day No Medical History Any Pertinent Medical History? 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 No (MAXIME HORNE) Review of Systems Review of Systems Constitutional: Reports: no symptoms. EENTM: Reports: see HPI, epistaxis. Respiratory: Reports: no symptoms. Cardiovascular: Reports: no symptoms. GI: Reports: no symptoms. Genitourinary: Reports: no symptoms. Musculoskeletal: Reports: no symptoms. Skin: Reports: no symptoms. Neurological/Psychological: Reports: no symptoms. Hematologic/Endocrine: Reports: see HPI, bleeding. Immunologic/Allergic: Reports: no symptoms. All Other Systems: Reviewed and Negative (MAXIME HORNE) Physical Exam Physical Exam General Appearance: no apparent distress, alert, comfortable Nose: dried blood, RIGHT NARES NOTED AND PLACED rHINO rOCKET WITH NO ACTIVE BLEEDING NOTED Comments: Well-developed well-nourished person in no acute distress HEENT: , extraocular motion intact, no nystagmus. Pupils equally round and reactive to light and accommodation. Nose is atraumatic. External auditory canal and Tympanic membranes clear. Pharynx normal. No swelling or edema. Neck: Supple, no lymphadenopathy, normal range of motion without pain or tenderness Back: Nontender, no CVA tenderness. Abdomen: Soft, nontender nondistended, no appreciable organomegaly. Normal bowel sounds. No ascites Extremity: No edema, no calf tenderness to palpation, normal and equal pulses. Neuro: Alert oriented x3, motor sensory normal, Skin: No appreciable rash on exposed skin, skin is warm and dry. Psych: Mood and affect is normal, memory and judgment is normal. (MAXIME HORNE) Progress Differential Diagnoses I considered the following diagnoses in my evaluation of the patient: [ Hypercoagulable state, anterior epistasis, posterior epistasis] Plan of Care: Orders Procedure Date/time Status PARTIAL THROMBOPLASTIN TIME 12/08 2112 Complete PROTHROMBIN TIME 12/08 2112 Complete Laboratory Tests 12/08/162128: PT 27.0 H, INR 2.60 H, APTT 37 Patient currently shows no active bleeding patient was in the emergency room for 3 hours and again reevaluated on multiple occasions no active bleeding. There is suspicion of mucous membrane with bloodsoaked Rhino Rocket causing patient's drainage however she was strongly advised to follow-up with ENT. INR is therapeutic. (MAXIME HORNE) Initial ED EKG: none (MAXIME HORNE) Departure Departure Disposition: HOME OR SELF CARE Condition: Stable Clinical Impression Primary Impression: Bleeding nose Referrals: ANTONIO MAIER,JEAN MARIE Byers (PCP/Family) Additional Instructions: As discussed continue home medications as directed. If symptoms worsen return to emergency room. Follow-up with YOUR ENT appointment next week for further evaluation treatment Departure Forms: Customer Survey General Discharge Information (MAXIME HORNE) PA/RADIO TALK SHOW HOST Co-Sign Statement Statement: ED Attending supervision documentation- [X] I saw and evaluated the patient. I have also reviewed all the pertinent lab results and diagnostic results. I agree with the findings and the plan of care as documented in the PA's/RADIO TALK SHOW HOST's documentation. [X] I have reviewed the ED Record and agree with the PA's/RADIO TALK SHOW HOST's documentation. [] Additions or exceptions (if any) to the PAs/RADIO TALK SHOW HOST's note and plan are summarized below: [] (MARGARETH MAIER,MARILUZ)
[2016-12-08] MEDS ORDERED: METFORMIN HCL500 M4 PO (21:14)
[2016-12-08] MEDS ORDERED: COUMADIN7.5 M1 PO (21:15)
[2016-12-08] MEDS ORDERED: ACETAMINOPHEN1 EAC2 PO (21:16)
[2016-12-08] MEDS ORDERED: BENZONATATE200 M1 PO (21:17)
[2016-12-08 21:51] LABS: PTT 37 SEC (25-37)
[2016-12-08 22:20] VITALS: BP 161/76
== END 2016-12-08 22:25 ==
LOC: ERH 19:07
PROVIDERS: Physician Assistant
DX: R04.0 Epistaxis (principal)

== ENCOUNTER 2018-01-13 17:06 | Emergency (ER) | payer OTHER ==
[~2018-01-13] VITALS: Ht 162.6 cm; Wt 99.8 kg
[~2018-01-13 17:06] MED LIST changes: +ACETAMINOPHEN1 EAC2 PO; +BENZONATATE200 M1 PO; +COUMADIN7.5 M1 PO; +METFORMIN HCL500 M4 PO
--- NOTE | 2018-01-13 18:56 | ED GENERAL ADULT ---
See Addendum History of Present Illness General Chief Complaint: General Adult Stated Complaint: L SHOULDER AND L LEG PAIN Source: patient Exam Limitations: no limitations Vital Signs & Intake/Output Vital Signs & Intake/Output Vital Signs Date Time Temp Pulse Resp B/P B/P Pulse O2 O2 Flow FiO2 Mean Ox Delivery Rate 01/13 2125 94 18 165/67 96 Room Air 01/13 1954 97.8 96 18 162/71 94 Room Air 01/13 1953 97.9 01/13 1731 97.9 90 18 148/72 95 Room Air ED Intake and Output 01/14 0000 01/13 1200 Intake Total 0 Output Total Balance 0 Intake, Oral 0 Patient 220 lb Weight Weight Reported by Patient Measurement Method Allergies Uncoded Allergies: ENVIRONMENTAL ALLERGIES (Severe, PT. IS UNSURE ?SOB 10/15/12) Reconcile Medications Acetaminophen/Diphenhydramine (Acetaminophen Pm Gelcap) 500 MG-25 MG TABLET 1 TAB PO QPM SLEEP (Reported) Alprazolam 0.25 MG TABLET 1 TAB PO DAILY NEEDED ANXIETY (Reported) Aspirin (Ecotrin*) 81 MG TABLET.DR 1 TAB PO DAILY HEART/BLOOD (Reported) Atorvastatin Calcium 20 MG TABLET 20 MG PO 1700 stroke Benzonatate 200 MG CAPSULE 1 CAP PO TIDPRN PRN COUGH (Reported) Cholecalciferol (Vitamin D3) (Vitamin D) 1,000 UNIT TABLET 1 TAB PO DAILY SUPPLEMENT (Reported) Diltiazem HCl (Diltiazem 24HR Cd) 300 MG CAP.ER.24H 1 CAP PO DAILY HEART ( Reported) Diltiazem HCl (Matzim LA) 360 MG TAB.ER.24H 1 TAB PO DAILY AFIB (Reported) Furosemide 20 MG TABLET 1 TAB PO DAILY WATER PILL (Reported) Levothyroxine Sodium 88 MCG TABLET 1 TAB PO DAILY AC THYROID (Reported) Metformin HCl (Metformin HCl ER) 500 MG TAB.ER.24H 4 TAB PO QPM DM (Reported) Warfarin Sodium (Coumadin) 5 MG TABLET 1 TAB PO AD BLOOD THINNER (Reported) Warfarin Sodium (Coumadin) 7.5 MG TABLET 1 TAB PO AD BLOOD THINNER (Reported) Triage Note: PT TO ER C/C STIFF NECK X 1 WEEK AND LEFT LEG PAIN X 2 DAYS. DENIES KNOWN INJURY OR TRAUMA. Triage Nurses Notes Reviewed? yes Onset: 3 days ago Duration: getting worse Severity: moderate LMP (ages 10-50): post menopausal HPI: 77-year-old female presents to the emergency room with past medical history significant for mini stroke in September 2017 for which she was seen at this hospital. She also has a history of valvular disease of the mitral valve for which she is on blood thinners warfarin 5 mg. She also has a history of atrial fibrillation. She sees a eyelet riveter regularly. She comes in reporting today that she has had for the last 3 days left sided neck pain and weakness going from sitting to standing position in her bilateral legs which she reports to be more so on the left side. Her concern for today is that she has had a recurrent stroke. She has been taking her medications as directed. She is also a type II diabetic with taking metformin daily. She denies any fever chills, nausea, vomiting, s she's had some increased shortness of breath with exertion recently. Chest pain. (Waqar Ram) Past History Travel History Traveled to [place] past 21 day No Medical History Any Pertinent Medical History? see below for history Neurological: CVA (sep 2017) EENT: cataracts, epistaxis Cardiovascular: AFIB, hypertension, hyperlipidemia, mitral valve disease Respiratory: asthma Gastrointestinal: NONE Hepatic: NONE Renal: NONE Musculoskeletal: NONE Psychiatric: NONE Endocrine: diabetes, hypothyroidism Cancer(s): NONE (atrial fibrillation) [employer] IN[employer]CTOR/Reproductive: NONE Surgical History Surgical History: appendectomy, cataract removal, nasal cautery mitral valve replacement hernia repair exploratory laparotomy bunion surgery Psychosocial History What is your primary language Colombian Tobacco Use: Quit >30 days ago Family History Hx Contributory? No (Waqar Ram) Review of Systems Review of Systems Constitutional: Reports: see HPI. EENTM: Reports: no symptoms. Respiratory: Reports: no symptoms. Cardiovascular: Reports: no symptoms. GI: Reports: no symptoms. Genitourinary: Reports: no symptoms. Musculoskeletal: Reports: see HPI, neck pain. Skin: Reports: no symptoms. Neurological/Psychological: Reports: see HPI. Hematologic/Endocrine: Reports: no symptoms. Immunologic/Allergic: Reports: no symptoms. All Other Systems: Reviewed and Negative (Waqar Ram) Physical Exam Physical Exam General Appearance: well developed/nourished, no apparent distress, alert, comfortable Head: atraumatic, normal appearance Eyes: Bilateral: normal appearance, EOMI, other (right pupil dilated). Ears, Nose, Throat: hearing grossly normal Neck: limited range of motion, limited rom with left lateral rotation about 30 degrees. , tenderness particularly over left levator scapulae muscles Respiratory: normal breath sounds Cardiovascular: irregularly irregular Back: decreased range of motion Extremities: normal inspection Neurologic/Psych: awake, alert, oriented x 3, normal mood/affect, weakness with moving from sitting to standing position. right pupil dilated, left pupil constricted, otherwise CN in tact Skin: intact, normal color, warm/dry Core Measures ACS in differential dx? No CVA/TIA Diagnosis: Yes Sepsis Present: No Sepsis Focused Exam Completed? No (Lorenzo DELEON,Waqar) Progress Differential Diagnoses I considered the following diagnoses in my evaluation of the patient: [TIA, CVA, musculoskeletal strain, pneumonia, UTI,] Plan of Care: Orders Procedure Date/time Status PT Evaluate & Treat 01/14 2128 Active CASE MANAGEMENT CONSULT 01/14 2128 Active URINALYSIS 01/13 1846 Complete TROPONIN LEVEL 01/13 1846 Complete PARTIAL THROMBOPLASTIN TIME 01/13 1846 Complete PROTHROMBIN TIME 01/13 1846 Complete COMPREHENSIVE METABOLIC PANEL 01/13 1846 Complete CBC WITHOUT DIFFERENTIAL 01/13 1846 Complete EKG 01/13 1846 Active Laboratory Tests 01/13/182012: Urine Color YEL, Urine Clarity HAZY H, Urine pH 6.0, Ur Specific [place] 1.025, Urine Protein 30 H, Urine Ketones TRACE H, Urine Nitrite NEG, Urine Bilirubin NEG, Urine Urobilinogen 0.2, Ur Leukocyte Esterase SMALL H, Ur Microscopic SEDIMENT EXAMINED, Urine RBC RARE, Urine WBC 1-3 H, Ur Epithelial Cells FEW, Urine Bacteria MOD H, Hyaline Casts RARE H, Urine Mucus RARE, Urine Hemoglobin TRACE-INTACT, Urine Glucose NEG 01/13/181920: Anion Gap 12, Estimated GFR > 60, BUN/Creatinine Ratio 27.5 H, Glucose 162 H, Calcium 10.5 H, Total Bilirubin 0.9, AST 16, ALT 23, Alkaline Phosphatase 105, Troponin I < 0.01, Total Protein 7.8, Albumin 4.7, Globulin 3.1, Albumin/ Globulin Ratio 1.5, PT 78.7 *H, INR 7.08 *H, APTT 58 H, CBC w Diff NO MAN DIFF REQ, RBC 4.80, MCV 87.1, MCH 29.1, MCHC 33.4, RDW 15.2 H, MPV 10.0, Gran % 80.6 H, Lymphocytes % 10.7 L, Monocytes % 8.0, Eosinophils % 0.5, Basophils % 0.2, Absolute Granulocytes 13.0 H, Absolute Lymphocytes 1.7, Absolute Monocytes 1.3 H, Absolute Eosinophils 0.1, Absolute Basophils 0 Diagnostic Imaging: Viewed by Me: Radiology Read, CT Scan. Discussed w/RAD: Radiology Read, CT Scan. Radiology Impression: PATIENT: CHELSEY SALINAS PRESENT AGE: 77 PATIENT ACCOUNT NO: [id number] : 41 LOCATION: [facility] ORDERING PHYSICIAN: Waqar DELEON SERVICE DATE: 01/13/18 EXAM TYPE : CAT - CT CHEST WO IV CONTRAST EXAMINATION: CT CHEST WITHOUT CONTRAST CLINICAL INFORMATION: Shortness of breath. COMPARISON: None TECHNIQUE: Multidetector volumetric CT imaging of the chest was done. Axial MIP volume rendering provided. Sagittal and coronal reformatted images were obtained. DLP: 395.2 mGy- cm FINDINGS: The thoracic inlet and mediastinum appear normal. Sternotomy wires are in place with a mitral valve replacement. There is a moderate-sized fatty- containing ventral upper abdominal wall hernia directly underlying the xiphoid process in the midline upper abdomen with a wide neck, measuring 8 cm CC by 5.4 cm TV. No inflammatory changes are seen within the fatty-containing hernia. The atria of the heart are dilated. There is no pericardial effusion. No bulky mediastinal adenopathy is seen. There are no pleural effusions. There is no axillary adenopathy. Very mild scattered subsegmental atelectatic changes are noted. The airways are patent. No emphysematous changes are seen. No acute osseous abnormality is seen. Mild to moderate midthoracic spondylosis noted. There is a peripherally calcified 2 cm gallstone inferiorly within the gallbladder. No gallbladder wall thickening is seen. The remaining upper abdomen is unremarkable. Fatty atrophic changes noted within the pancreas. There is a small gastroesophageal hiatal hernia. IMPRESSION: No airspace consolidation or pleural effusion. No evidence of pulmonary vascular congestion. Moderate-sized midline supraumbilical fat-containing abdominal hernia without inflammatory change. Cholelithiasis. DICTATED BY: Vinay Luque MD DATE/TIME DICTATED:2205 WIRE WORKER:BANEGAS DATE/TIME TRANSCRIBED:01/13/182205 CONFIDENTIAL, DO NOT COPY WITHOUT APPROPRIATE AUTHORIZATION. <Electronically signed in Other Vendor System> SIGNED BY: Vinay Luque MD 01/13/182216 , PATIENT: CHELSEY SALINAS PRESENT AGE: 77 PATIENT ACCOUNT NO: [id number] : 41 LOCATION: [facility] ORDERING PHYSICIAN: Waqar DELEON SERVICE DATE: 01/13/18 EXAM TYPE: RAD - XRY-PORTABLE CHEST XRAY EXAMINATION: XR PORTABLE CHEST CLINICAL INFORMATION: Shortness of breath. COMPARISON: Chest radiograph 05/08/2017. TECHNIQUE: Portable frontal view of the chest was obtained. FINDINGS: The heart is enlarged and there are postoperative changes of prior median sternotomy and mitral valve replacement. The study is underpenetrated rendering evaluation for lung suboptimal. The retrocardiac lung is not well evaluated on this examination which may be due to technique or a retrocardiac opacity. No discrete pleural effusion. No acute osseous finding. IMPRESSION: Limited examination due to underpenetration of the study and patient body habitus. A retrocardiac opacity is not excluded. If clinically possible, a two-view radiograph of the chest would be helpful for further evaluation. Mild cardiomegaly. DICTATED BY: Guy Greenfield MD DATE/TIME DICTATED:01/13/182107 WIRE WORKER:BANEGAS DATE/TIME TRANSCRIBED:01/13/182107 CONFIDENTIAL, DO NOT COPY WITHOUT APPROPRIATE AUTHORIZATION. <Electronically signed in Other Vendor System> SIGNED BY: Guy Greenfield MD 01/13/182113, PATIENT: CHELSEY SALINAS PRESENT AGE: 77 PATIENT ACCOUNT NO: [id number] : 41 LOCATION: [facility] ORDERING PHYSICIAN: Waqar DELEON SERVICE DATE: 01/13/18 EXAM TYPE: CAT - CT HEAD WO IV CONTRAST EXAMINATION: CT HEAD WITHOUT CONTRAST CLINICAL INFORMATION: Left neck and leg pain with history of stroke. COMPARISON: CT head 10/22/2016. TECHNIQUE: Contiguous axial imaging was performed from the skull base to vertex without intravenous administration of contrast. DLP: 532.25 mGy-cm FINDINGS: Encephalomalacia within the right frontal lobe compatible with sequela prior infarction. There is no evidence of acute intracranial hemorrhage or territorial infarction. No abnormal mass effect or midline shift is seen. Rashid to white matter differentiation is otherwise well preserved. No extra-axial fluid collections are identified. Intracranial atherosclerotic calcifications with a few scattered periventricular and subcortical white matter hypodensities bilaterally most consistent with sequela of chronic microvascular ischemia in this age group. The ventricles are normal in size. The osseous structures and soft tissues are normal. The mastoid air cells and visualized portions of the paranasal sinuses are well aerated. The [place] ocular lenses are surgically absent. The visualized globes and retrobulbar soft tissues are otherwise unremarkable. IMPRESSION: No acute intracranial pathology. CT can be insensitive to subtle parenchymal changes. Consider MRI for further evaluation based on clinical suspicion. Remote right frontal lobe/MCA territory infarction. DICTATED BY: Guy Greenfield MD DATE/TIME DICTATED:01/13/181899 WIRE WORKER:KATHLEEN DATE/TIME TRANSCRIBED:1899 CONFIDENTIAL, DO NOT COPY WITHOUT APPROPRIATE AUTHORIZATION. < Electronically signed in Other Vendor System> SIGNED BY: Guy Greenfield MD 01/13/181906 Initial ED EKG: normal sinus rhythm, rate (87) Hand-Off Endorsed To: Roland Lozano MD Endorsed Time: 2350 Pending: consult (pt, case management) Comments: 01/13/2018 11:51:14 PM Spoke with hospitalist dr ayala who feels that it is best that the patient stay in the ER overnight for evaluation with physical therapy in case management in the morning. (Waqar Rma) Departure Departure Disposition: STILL A PATIENT Condition: Stable Clinical Impression Primary Impression: Dyspnea Secondary Impressions: General weakness Referrals: Rei MAIER,Martin Byers (PCP/Family) Departure Forms: Customer Survey General Discharge Information Comments 01/13/2018 7:12:19 PM Patient given Tylenol in the emergency department. Patient will have blood work performed and also CT scan of the head. Will continue to monitor. (Waqar Ram) PA/EQUIPMENT OPERAT0R Co-Sign Statement Statement: ED Attending supervision documentation- [] I saw and evaluated the patient. I have also reviewed all the pertinent lab results and diagnostic results. I agree with the findings and the plan of care as documented in the PA's/EQUIPMENT OPERAT0R's documentation. [x] I have reviewed the ED Record and agree with the PA's/EQUIPMENT OPERAT0R's documentation. [] Additions or exceptions (if any) to the PAs/EQUIPMENT OPERAT0R's note and plan are summarized below: [] (Blake MAIER,Roland Francis) Critical Care Note Critical Care Note Critical Care Time: non-applicable (Waqar Ram)
--- NOTE | 2018-01-13 19:07 | CT SCAN REPORT ---
EXAMINATION: CT HEAD WITHOUT CONTRAST CLINICAL INFORMATION: Left neck and leg pain with history of stroke. COMPARISON: CT head 10/22/2016. TECHNIQUE: Contiguous axial imaging was performed from the skull base to vertex without intravenous administration of contrast. DLP: 532.25 mGy-cm FINDINGS: Encephalomalacia within the right frontal lobe compatible with sequela prior infarction. There is no evidence of acute intracranial hemorrhage or territorial infarction. No abnormal mass effect or midline shift is seen. Rashid to white matter differentiation is otherwise well preserved. No extra-axial fluid collections are identified. Intracranial atherosclerotic calcifications with a few scattered periventricular and subcortical white matter hypodensities bilaterally most consistent with sequela of chronic microvascular ischemia in this age group. The ventricles are normal in size. The osseous structures and soft tissues are normal. The mastoid air cells and visualized portions of the paranasal sinuses are well aerated. The [place] ocular lenses are surgically absent. The visualized globes and retrobulbar soft tissues are otherwise unremarkable. IMPRESSION: No acute intracranial pathology. CT can be insensitive to subtle parenchymal changes. Consider MRI for further evaluation based on clinical suspicion. Remote right frontal lobe/MCA territory infarction.
[2018-01-13 19:33] LABS: ABSOLUTE BASOPHIL COUNT 0 /CUMM (0.0-0.2); ABSOLUTE EOSINOPHIL COUNT 0.1 /CUMM (0.0-0.7); ABSOLUTE LYMPH COUNT 1.7 /CUMM (1.2-3.4); ABSOLUTE MONOCYTE COUNT 1.3 /CUMM (0.10-0.60); BASOPHIL % 0.2 % (0.0-2.0); EOSINOPHIL % 0.5 % (0-5); GRANULOCYTE % 80.6 % (42.2-75.2); HEMATOCRIT 41.8 % (37-47); MEAN CORPUSCULAR HGB 29.1 PG (27.0-31.0); MEAN CORPUSCULAR HGB CONC 33.4 G/DL (33.0-37.0); MEAN CORPUSCULAR VOLUME 87.1 FL (81.0-99.0); PLATELET COUNT 286 /CUMM (130-400); RBC DISTRIBUTION WIDTH 15.2 % (11.5-14.5); WHITE BLOOD CELL COUNT 16.2 /CUMM (4.8-10.8)
[2018-01-13 19:41] LABS: PTT 58 SEC (25-37)
[2018-01-13 19:47] LABS: PT 78.7 SEC (9.4-12.5)
[2018-01-13] MEDS ORDERED: MATZIM LA360 M1 PO (20:29)
[2018-01-13] MEDS ORDERED: ALPRAZOLAM0.25 M1 PO (20:32)
--- NOTE | 2018-01-13 21:14 | RADIOLOGY REPORT ---
EXAMINATION: XR PORTABLE CHEST CLINICAL INFORMATION: Shortness of breath. COMPARISON: Chest radiograph 05/08/2017. TECHNIQUE: Portable frontal view of the chest was obtained. FINDINGS: The heart is enlarged and there are postoperative changes of prior median sternotomy and mitral valve replacement. The study is underpenetrated rendering evaluation for lung suboptimal. The retrocardiac lung is not well evaluated on this examination which may be due to technique or a retrocardiac opacity. No discrete pleural effusion. No acute osseous finding. IMPRESSION: Limited examination due to underpenetration of the study and patient body habitus. A retrocardiac opacity is not excluded. If clinically possible, a two-view radiograph of the chest would be helpful for further evaluation. Mild cardiomegaly.
--- NOTE | 2018-01-13 22:17 | CT SCAN REPORT ---
EXAMINATION: CT CHEST WITHOUT CONTRAST CLINICAL INFORMATION: Shortness of breath. COMPARISON: None TECHNIQUE: Multidetector volumetric CT imaging of the chest was done. Axial MIP volume rendering provided. Sagittal and coronal reformatted images were obtained. DLP: 395.2 mGy-cm FINDINGS: The thoracic inlet and mediastinum appear normal. Sternotomy wires are in place with a mitral valve replacement. There is a moderate-sized fatty-containing ventral upper abdominal wall hernia directly underlying the xiphoid process in the midline upper abdomen with a wide neck, measuring 8 cm CC by 5.4 cm TV. No inflammatory changes are seen within the fatty-containing hernia. The atria of the heart are dilated. There is no pericardial effusion. No bulky mediastinal adenopathy is seen. There are no pleural effusions. There is no axillary adenopathy. Very mild scattered subsegmental atelectatic changes are noted. The airways are patent. No emphysematous changes are seen. No acute osseous abnormality is seen. Mild to moderate midthoracic spondylosis noted. There is a peripherally calcified 2 cm gallstone inferiorly within the gallbladder. No gallbladder wall thickening is seen. The remaining upper abdomen is unremarkable. Fatty atrophic changes noted within the pancreas. There is a small gastroesophageal hiatal hernia. IMPRESSION: No airspace consolidation or pleural effusion. No evidence of pulmonary vascular congestion. Moderate-sized midline supraumbilical fat-containing abdominal hernia without inflammatory change. Cholelithiasis.
[2018-01-14 12:56] VITALS: BP 162/78
[2018-01-14] MEDS ORDERED: ULTRAM50 M1 PO (12:59)
== END 2018-01-14 13:21 ==
LOC: ERH 17:06
PROVIDERS: Physician Assistant Medical
DX: M54.2 Cervicalgia (principal); R06.00 Dyspnea, unspecified; R53.1 Weakness; Z79.01 Long term (current) use of anticoagulants
CPT/HCPCS: 71045; 81001; 93005; 93010; 97116-GP; 97161-GP

== ENCOUNTER 2018-01-17 08:50 | Emergency (ER) | payer OTHER ==
[~2018-01-17] VITALS: Ht 160 cm; Wt 99.8 kg
[~2018-01-17 08:50] MED LIST changes: +ALPRAZOLAM0.25 M1 PO; +MATZIM LA360 M1 PO; +ULTRAM50 M1 PO
--- NOTE | 2018-01-17 08:57 | ED HEAD/FACIAL INJ COMPLAINT ---
History of Present Illness General Chief Complaint: Fall Stated Complaint: FALL HIT HEAD Source: patient, family Exam Limitations: no limitations Vital Signs & Intake/Output Vital Signs & Intake/Output Vital Signs Date Time Temp Pulse Resp B/P B/P Pulse O2 O2 Flow FiO2 Mean Ox Delivery Rate 01/17 1116 98.0 84 18 141/63 98 Room Air 01/17 0852 96.9 92 18 151/68 97 Room Air Room Air Allergies Uncoded Allergies: ENVIRONMENTAL ALLERGIES (Severe, PT. IS UNSURE ?SOB 10/15/12) Reconcile Medications Aspirin (Ecotrin*) 81 MG TABLET.DR 1 TAB PO DAILY HEART/BLOOD (Reported) Atorvastatin Calcium 20 MG TABLET 20 MG PO 1700 stroke Cholecalciferol (Vitamin D3) (Vitamin D) 1,000 UNIT TABLET 1 TAB PO DAILY SUPPLEMENT (Reported) Diltiazem HCl (Matzim LA) 360 MG TAB.ER.24H 1 TAB PO DAILY AFIB (Reported) Furosemide 20 MG TABLET 1 TAB PO DAILY WATER PILL (Reported) Levothyroxine Sodium 88 MCG TABLET 1 TAB PO DAILY AC THYROID (Reported) Metformin HCl (Metformin HCl ER) 500 MG TAB.ER.24H 4 TAB PO QPM DM (Reported) Tramadol HCl (Ultram) 50 MG TABLET 1-2 TAB PO Q6P PRN PAIN Warfarin Sodium (Coumadin) 5 MG TABLET 1 TAB PO AD BLOOD THINNER (Reported) Warfarin Sodium (Coumadin) 7.5 MG TABLET 1 TAB PO AD BLOOD THINNER (Reported) Triage Note: PT TO ED S/P "I SLIPPED AND FELL IN THE SHOWER", PT DENIES LOC, PT ON COUMADIN DUE FOR INR TODAY, LAST INR 3.5 2 DAYS AGO. "I DIDN'T FALL HARD, MY DAUGHTER CAUGHT ME". Triage Nurses Notes Reviewed? yes Onset: Just prior to arrival Severity: moderate Severity Numbers: 5 Location: occipital Method of Injury: fall Loss of Consciousness: no loss of consciousness HPI: Patient is a 77-year-old female on Coumadin presenting to the emergency department with family members a chief complaint of fall prior to arrival. She reports that she is trying to get out of the bathtub and slipped backwards and hit her head on the tub. No LOC. Patient Percocet she did not fall "hard" because her family member caught her partially. Denies any dizziness or lightheadedness. They came in for evaluation she was recently admitted to the hospital for elevated INR levels. DenieS visual change nausea or vomiting. Denies neck or back pain. She has been able to ambulate since incident happened just prior to arrival. Denies any other injuries at the fall. Denies any upper extremity or lower extremities pain. No numbness or tingling. Denies confusion. (Mikayla Grant) Past History Travel History Traveled to [place] past 21 day No Medical History Any Pertinent Medical History? 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 No (Mikayla Grant) Review of Systems Review of Systems Constitutional: Reports: no symptoms. Comments Review of systems: See HPI, All other systems negative. Constitutional, no chills fever or weight loss HEENT: No visual changes no sore throat no congestion Cardiovascular: No chest pain ,palpitation , orthopnea or ankle swelling Skin, no jaundice no rashes Respiratory: No dyspnea cough sputum or hemoptysis GI: No nausea no vomiting : No dysuria No hematuria Muscle skeletal: no back pain Neurologic: No numbness no confusion Psych: No stress anxiety or depression,. Heme/endocrine: On Coumadin, no polyuria or polydipsia Immunology: No splenectomy or history of AIDS (Mikayla Grant) Physical Exam Physical Exam General Appearance: well developed/nourished, no apparent distress, alert, awake , comfortable Cranial Nerves: CRANIAL NERVES ii THROUGH xii GROSSLY INTACT. Comments: Well-developed well-nourished person in no acute distress HEENT: Normal EENT exam, extraocular motion intact, no nystagmus. Pupils equally round and reactive to light and accommodation. Nose is atraumatic. External auditory canal and Tympanic membranes clear. Pharynx normal. No swelling or edema. No hemotympanum noted. Mild tenderness to palpation of the occipital region of the scalp. No bogginess or step-off deformities. Neck: Full range of motion, no C-spine tenderness. Back: Nontender to palpation over the cervical, thoracic or lumbar spine. No crepitus palpated. No step-off deformities elevated. Cardiovascular: IRRegular rate and rhythms Respiratory: Chest nontender. No respiratory distress.breath sounds clear to auscultation bilaterally Abdomen: Soft, nontender nondistended, no appreciable organomegaly. Normal bowel sounds. No ascites Extremity: No edema, nontender to palpation over both hips. Able to perform straight leg raise bilaterally without any pain or difficulty. Full range of motion of upper extremities without difficulty. Piano Assembler strength is equal and symmetric bilaterally. Neuro: Alert oriented x3, motor sensory normal, cranial nerves II through XII grossly intact. Cerebellar testing is unremarkable. Walks with steady gait with a rolling walker. Skin: No appreciable rash on exposed skin, skin is warm and dry. Psych: Mood and affect is normal, memory and judgment is normal. (Phong DELEON,Mikayla) Progress Differential Diagnosis: ICH, skull fracture Diagnostic Imaging: Viewed by Me: CT Scan. Discussed w/RAD: CT Scan. Radiology Impression: PATIENT: CHELSEY SALINAS PRESENT AGE: 77 PATIENT ACCOUNT NO: [id number] : 41 LOCATION: [facility] ORDERING PHYSICIAN: Mikayla DELEON SERVICE DATE: 01/17/18 EXAM TYPE: CAT - CT CERV SPINE WO IV CONTRAST; CT HEAD WO IV CONTRAST EXAMINATION: CT HEAD AND CERVICAL SPINE. CLINICAL INFORMATION: Fall. Head strike on Coumadin. COMPARISON: CT head 01/13/2018. TECHNIQUE: Pasteuriser Operator images were obtained. CT acquisition of the head and cervical spine was performed without intravenous administration of contrast. Data was reformatted into multiplanar images at the acquisition workstation. DLP: 885.11 mGy-cm. FINDINGS: Head: There is gliosis and encephalomalacia involving the right postcentral gyrus consistent with chronic changes of an old infarct within the vascular territory of the right middle cerebral artery. Scattered ill-defined foci of hypoattenuation are visualized within the periventricular white matter most likely represent a chronic manifestation of small vessel ischemia. No evidence of acute intracranial hemorrhage. No abnormal extra axial collection. Lateral and third ventricles are proportionate to the subarachnoid spaces. No hydrocephalus. The calvarium and skull base are intact. Mastoid air cells and middle ear cavities are well aerated. Visualized paranasal sinuses are well-aerated. Globes and orbits are symmetric. Cervical spine: Alignment is normal. Vertebral heights are preserved. There is no acute fracture. No abnormal prevertebral soft tissue swelling. There is slight loss of intervertebral disc height with associated sclerotic degenerative endplate changes and disc osteophyte spurring. The canal is not well assessed due to inherent limitations of CT however there is appears to be at least mild canal stenosis at the levels of C5-C6 and C6-C7. Soft tissues of the neck are unremarkable. Visualized lung apices are clear. IMPRESSION: Head: No acute intracranial hemorrhage. Chronic changes within the right postcentral gyrus presumably related to an old infarct within the vascular territory the right middle cerebral artery. Grossly no evidence of acute territorial infarct. Cervical spine: No acute cervical spine fracture. There is multilevel degenerative spondylosis of the cervical spine. Disc osteophyte spurring causes at least mild canal stenosis at the levels of C5-C6 and C6-C7. DICTATED BY: Dariusz Arora MD DATE/TIME DICTATED:01/17/181111 TELEVISION ANTENNA INSTALLER:KATHLEEN DATE/TIME TRANSCRIBED:01/17/181111 CONFIDENTIAL, DO NOT COPY WITHOUT APPROPRIATE AUTHORIZATION. <Electronically signed in Other Vendor System> SIGNED BY: Dariusz Arora MD 01/17/18 1121 (Mikayla Grant) Plan of Care: Orders Procedure Date/time Status PROTHROMBIN TIME 01/17 0905 Complete Laboratory Tests 01/17/18 0915: PT 23.8 H, INR 2.17 H (Nicolasa MAIER,[place]) Departure Departure Time of Disposition: 1127 Disposition: HOME OR SELF CARE Condition: Stable Clinical Impression Primary Impression: Minor head injury Qualifiers: Encounter type: initial encounter Qualified Code: S09.90XA - Unspecified injury of head, initial encounter Referrals: Rei MAIER,Martin Byers (PCP/Family) Additional Instructions: FOLLOW UP WITH YOUR PRIMARY CARE DOCTOR IN THE NEXT 2-3 DAYS. RETURN FOR HEADACHES, VISUAL CHANGES, NAUSE OR VOMITING. TAKE TYLENOL FOR ANY PAIN. PATIENT: CHELSEY SALINAS PRESENT AGE: 77 PATIENT ACCOUNT NO: [id number] : 41 LOCATION: [facility] ORDERING PHYSICIAN: Mikayla DELEON SERVICE DATE: 01/17/18 EXAM TYPE: CAT - CT CERV SPINE WO IV CONTRAST; CT HEAD WO IV CONTRAST EXAMINATION: CT HEAD AND CERVICAL SPINE. CLINICAL INFORMATION: Fall. Head strike on Coumadin. COMPARISON: CT head 01/13/2018. TECHNIQUE: Pasteuriser Operator images were obtained. CT acquisition of the head and cervical spine was performed without intravenous administration of contrast. Data was reformatted into multiplanar images at the acquisition workstation. DLP: 885.11 mGy-cm. FINDINGS: Head: There is gliosis and encephalomalacia involving the right postcentral gyrus consistent with chronic changes of an old infarct within the vascular territory of the right middle cerebral artery. Scattered ill-defined foci of hypoattenuation are visualized within the periventricular white matter most likely represent a chronic manifestation of small vessel ischemia. No evidence of acute intracranial hemorrhage. No abnormal extra axial collection. Lateral and third ventricles are proportionate to the subarachnoid spaces. No hydrocephalus. The calvarium and skull base are intact. Mastoid air cells and middle ear cavities are well aerated. Visualized paranasal sinuses are well-aerated. Globes and orbits are symmetric. Cervical spine: Alignment is normal. Vertebral heights are preserved. There is no acute fracture. No abnormal prevertebral soft tissue swelling. There is slight loss of intervertebral disc height with associated sclerotic degenerative endplate changes and disc osteophyte spurring. The canal is not well assessed due to inherent limitations of CT however there is appears to be at least mild canal stenosis at the levels of C5-C6 and C6-C7. Soft tissues of the neck are unremarkable. Visualized lung apices are clear. IMPRESSION: Head: No acute intracranial hemorrhage. Chronic changes within the right postcentral gyrus presumably related to an old infarct within the vascular territory the right middle cerebral artery. Grossly no evidence of acute territorial infarct. Cervical spine: No acute cervical spine fracture. There is multilevel degenerative spondylosis of the cervical spine. Disc osteophyte spurring causes at least mild canal stenosis at the levels of C5-C6 and C6-C7. DICTATED BY: Ulysses MAIER,Dariusz Caceres DATE/TIME DICTATED:01/17/181111 TELEVISION ANTENNA INSTALLER:RAD.BANEGAS DATE/TIME TRANSCRIBED:01/17/18 / 1112 CONFIDENTIAL, DO NOT COPY WITHOUT APPROPRIATE AUTHORIZATION. <Electronically signed in Other Vendor System> SIGNED BY: Ulysses MAIER,Dariusz Caceres 01/17 1121 Departure Forms: Customer Survey General Discharge Information (Mikayla Grant) PA/AQUATICS DIRECTOR Co-Sign Statement Statement: ED Attending supervision documentation- [X] I saw and evaluated the patient. I have also reviewed all the pertinent lab results and diagnostic results. I agree with the findings and the plan of care as documented in the PA's/AQUATICS DIRECTOR's documentation. Patient presents for evaluation of injury sustained status post fall earlier today. Patient states she slipped in the tub and hit her head. She denies loss of consciousness. Physical examination reveals no facial ecchymoses, apparent head trauma or focal neurologic deficit. [] I have reviewed the ED Record and agree with the PA's/AQUATICS DIRECTOR's documentation. [] Additions or exceptions (if any) to the PAs/AQUATICS DIRECTOR's note and plan are summarized below: [] (Nicolasa MAIER,[place])
[2018-01-17 09:27] LABS: PT 23.8 SEC (9.4-12.5)
[2018-01-17 11:16] VITALS: BP 141/63
--- NOTE | 2018-01-17 11:21 | CT SCAN REPORT ---
EXAMINATION: CT HEAD AND CERVICAL SPINE. CLINICAL INFORMATION: Fall. Head strike on Coumadin. COMPARISON: CT head 01/13/2018. TECHNIQUE: Traveling Representative images were obtained. CT acquisition of the head and cervical spine was performed without intravenous administration of contrast. Data was reformatted into multiplanar images at the acquisition workstation. DLP: 885.11 mGy-cm. FINDINGS: Head: There is gliosis and encephalomalacia involving the right postcentral gyrus consistent with chronic changes of an old infarct within the vascular territory of the right middle cerebral artery. Scattered ill-defined foci of hypoattenuation are visualized within the periventricular white matter most likely represent a chronic manifestation of small vessel ischemia. No evidence of acute intracranial hemorrhage. No abnormal extra axial collection. Lateral and third ventricles are proportionate to the subarachnoid spaces. No hydrocephalus. The calvarium and skull base are intact. Mastoid air cells and middle ear cavities are well aerated. Visualized paranasal sinuses are well-aerated. Globes and orbits are symmetric. Cervical spine: Alignment is normal. Vertebral heights are preserved. There is no acute fracture. No abnormal prevertebral soft tissue swelling. There is slight loss of intervertebral disc height with associated sclerotic degenerative endplate changes and disc osteophyte spurring. The canal is not well assessed due to inherent limitations of CT however there is appears to be at least mild canal stenosis at the levels of C5-C6 and C6-C7. Soft tissues of the neck are unremarkable. Visualized lung apices are clear. IMPRESSION: Head: No acute intracranial hemorrhage. Chronic changes within the right postcentral gyrus presumably related to an old infarct within the vascular territory the right middle cerebral artery. Grossly no evidence of acute territorial infarct. Cervical spine: No acute cervical spine fracture. There is multilevel degenerative spondylosis of the cervical spine. Disc osteophyte spurring causes at least mild canal stenosis at the levels of C5-C6 and C6-C7.
== END 2018-01-17 11:48 ==
LOC: ERH 08:50
PROVIDERS: Physician Assistant
DX: S09.90XA Unspecified injury of head, initial encounter (principal); W18.2XXA Fall in (into) shower or empty bathtub, initial encounter; Y92.9 Unspecified place or not applicable; Y93.9 Activity, unspecified; Z79.01 Long term (current) use of anticoagulants